=== PATIENT | female | born 1950 | race Caucasian/White ===

== ENCOUNTER 2020-12-21 17:40 | Inpatient (IN) | payer MEDICARE ==
[2020-12-21] MEDS ORDERED: Sodium Chloride 0.9% 10 ML Syringe FLUSH PRN (17:46)
[2020-12-21] MEDS ORDERED: Ketorolac 15 MG/ML SDV IVPUSH ONE (17:49)
[2020-12-21] MEDS ORDERED: methylPREDNISolone Sodium Succinate 125 MG/2 ML SDV IVPUSH ONE (17:49)
[2020-12-21] MEDS ORDERED: Sodium Chloride 0.9% 1,000 ML IV SCH (18:00)
[2020-12-21] MEDS ORDERED: cefTRIAXone 2 GM in Sodium Chloride 0.9% 100 ML IV ONE (18:17)
[2020-12-21] MEDS: cefTRIAXone 2 GM AdvVial IV ONE ×2 (18:25→18:32)
--- NOTE | 2020-12-21 19:25 | EDM.PDOC ---
ED HPI GENERAL MEDICAL PROBLEM - General Chief Complaint: Respiratory Problem Stated Complaint: [facility] Time Seen by Provider: 12/21/20 17:46 Source of Information: Reports: Patient, EMS, Family History Limitations: Reports: No Limitations - History of Present Illness INITIAL COMMENTS - FREE TEXT/NARRATIVE: The patient presents by [facility] for a fever, shortness of breath and confusion. She is traveling through. She was confused when she arrived. Her friend called and said over a week ago she was admitted in [place] for a blood infection. She was also admitted in [place] a few days ago for high altitude. She has mild COPD. She also has a seizure history. She is on some pain meds. She was doing good this morning but this afternoon she said she was hurting when she sat down and then she was anxious and confused and breathing hard. When EMS arrived her oxygen saturations were in the 80s. They put her on a nonrebreather. They also got a temp of 103.3. 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 The patient has redness to her legs. Onset: Gradual Duration: Day(s): Severity: Moderate Improves with: Reports: None Worsens with: Reports: None Associated Symptoms: Reports: Fever/Chills, Shortness of Breath. 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 IV with fluids - Related Data Allergies Allergy/AdvReac Type Severity Reaction Status Date / Time No Known Allergies Allergy Verified 12/21/20 17:47 Home Meds: Home Meds Aspirin [Aspirin EC] 81 mg PO DAILY 12/21/20 [History] Calcium Carbonate [Calcium] 500 mg PO QPM 12/21/20 [History] Cholecalciferol (Vitamin D3) [Vitamin D] 1,000 unit PO DAILY 12/21/20 [History] Cyanocobalamin (Vitamin B-12) [Vitamin B-12] 1,000 mcg PO DAILY 12/21/20 [History] Cyclobenzaprine [Flexeril] 10 mg PO BEDTIME 12/21/20 [History] Doxepin [SINEquan] 25 mg PO BEDTIME 12/21/20 [History] Levorphanol Tartrate 1 mg PO QPM 12/21/20 [History] [place] Carbonate 300 mg PO DAILY 12/21/20 [History] [place] Carbonate 600 mg PO QPM 12/21/20 [History] Magnesium 0 mg PO QPM 12/21/20 [History] Multivitamin 1 each PO DAILY 12/21/20 [History] Omeprazole Magnesium [Prilosec Otc] 80 mg PO DAILY 12/21/20 [History] Topiramate [Topamax] 200 mg PO QPM 12/21/20 [History] lamoTRIgine [LaMICtal] 150 mg PO BID 12/21/20 [History] oxyCODONE HCl [Oxycodone HCl] 15 mg PO TID PRN 12/21/20 [History] Past Medical History Respiratory History: Reports: COPD, SOB Gastrointestinal History: Reports: GERD Endocrine/Metabolic History: Reports: Obesity/BMI 30+ Social & Family History - Tobacco Use Tobacco Use Status *Q: Unknown Ever Used Tobacco - Caffeine Use Caffeine Use Comment: Unknown due to pt condition. ED ROS GENERAL - Review of Systems Review Of Systems: See Below Constitutional: Reports: Fever, Chills HEENT: Reports: No Symptoms Respiratory: Reports: Shortness of Breath. Denies: Cough Cardiovascular: Reports: No Symptoms Endocrine: Reports: No Symptoms GI/Abdominal: Reports: No Symptoms : Reports: No Symptoms Musculoskeletal: Reports: No Symptoms Skin: Reports: No Symptoms ED EXAM, GENERAL - Physical Exam Exam: See Below Exam Limited By: Altered Mental Status General Appearance: No Apparent Distress, Other (Sleepy but she will wake up and answer questions) Ears: Normal External Exam Nose: Normal Inspection Head: Atraumatic, Normocephalic Neck: Normal Inspection Respiratory/Chest: No Respiratory Distress, Decreased Breath Sounds Cardiovascular: Regular Rate, Rhythm, No Murmur, Other (Edema to both legs) GI/Abdominal: Soft, Non-Tender, No Organomegaly, No Mass Extremities: Other (erythema and edema to both legs) Neurological: Other (sleepy but she will wake up and answer some questions) Course - Vital Signs Last Recorded V/S: Last Vital Signs Temp 100.6 F 12/21/20 17:47 Pulse 81 12/21/20 18:20 Resp 20 12/21/20 17:47 BP 103/64 12/21/20 18:20 Pulse Ox 98 12/21/20 18:20 - Orders/Labs/Meds Orders: Active Orders 24 hr Category Date Time Status Blood Glucose Check, Bedside [RC] ONETIME Care 12/21/20 17:53 Active Cardiac Monitoring [RC] . DIRECTED Care 12/21/20 17:46 Active EKG Documentation Completion [RC] STAT Care 12/21/20 17:47 Active Oxygen Therapy [RC] PRN Care 12/21/20 17:46 Active Peripheral IV Care [RC] . DIRECTED Care 12/21/20 17:47 Active Chest 1V Frontal [CR] Stat Exams 12/21/20 17:47 Taken Head wo Cont [CT] Stat Exams 12/21/20 19:39 Ordered AMMONIA VENOUS [CHEM] Stat Lab 12/21/20 19:40 Ordered CULTURE BLOOD [BC] Stat Lab 12/21/20 18:03 Received CULTURE BLOOD [BC] Stat Lab 12/21/20 18:13 Received LITHIUM [REF] Stat Lab 12/21/20 18:34 Ordered Sodium Chloride 0.9% [Normal Saline] 1,000 ml Med 12/21/20 18:00 Active IV .BOLUS Sodium Chloride 0.9% [Saline Flush] Med 12/21/20 17:46 Active 10 ml FLUSH ASDIRECTED PRN Vancomycin 2 gm Med 12/21/20 19:39 Ordered Sodium Chloride 0.9% [Normal Saline] 500 ml IV ONETIME Blood Culture x2 Reflex Set [OM.PC] Stat Oth 12/21/20 17:47 Ordered Peripheral IV Insertion Adult [OM.PC] Stat Oth 12/21/20 17:46 Ordered Medication Orders Sodium Chloride (Normal Saline) 1,000 mls @ 1,000 mls/hr IV .BOLUS EMMANUEL Last Admin: 12/21/20 18:05 Dose: 1,000 mls/hr Documented by: ANTONIA Sodium Chloride (Sodium Chloride 0.9% 10 Ml Syringe) 10 ml FLUSH ASDIRECTED PRN PRN Reason: Keep Vein Open Last Admin: 12/21/20 18:05 Dose: 10 ml Documented by: ANTONIA Labs: Laboratory Tests 12/21/20 12/21/20 12/21/20 Range/Units 17:46 17:46 17:46 WBC 21.88 H (3.98-10.04) K/mm3 RBC 4.00 (3.98-5.22) M/mm3 Hgb 10.2 L (11.2-15.7) gm/dl Hct 35.0 (34.1-44.9) % MCV 87.5 (79.4-94.8) fl MCH 25.5 L (25.6-32.2) pg MCHC 29.1 L (32.2-35.5) g/dl RDW Std Deviation 67.8 H (36.4-46.3) fL Plt Count 410 H (182-369) K/mm3 MPV 11.2 (9.4-12.3) fl Neut % (Auto) 80.7 H (34.0-71.1) % Lymph % (Auto) 8.7 L (19.3-51.7) % [place] % (Auto) 7.8 (4.7-12.5) % Eos % (Auto) 1.6 (0.7-5.8) Baso % (Auto) 0.2 (0.1-1.2) % Neut # (Auto) 17.64 H (1.56-6.13) K/mm3 Lymph # (Auto) 1.91 (1.18-3.74) K/mm3 [place] # (Auto) 1.70 H (0.24-0.36) K/mm3 Eos # (Auto) 0.36 (0.04-0.36) K/mm3 Baso # (Auto) 0.05 (0.01-0.08) K/mm3 Manual Slide Review Abnormal smear PT 10.3 (9.7-12.0) SECONDS INR 0.96 APTT 22.8 (21.7-31.4) SECONDS Puncture Site ABG pH (7.35-7.45) ABG pCO2 (35.0-45.0) mmHg ABG pO2 (80.0-100.0) mmHg ABG HCO3 (22.0-26.0) meq/L ABG O2 Saturation (96.0-97.0) % ABG Base Excess (-2-2.0) A-a Gradient mmHg O2 Delivery Device Oxygen Flow Rate FiO2 (21.00-100.00) % Sodium 138 (136-145) mEq/L Potassium 4.9 (3.5-5.1) mEq/L Chloride 106 (98-107) mEq/L Carbon Dioxide 24 (21-32) mEq/L Anion Gap 12.9 (5-15) BUN 24 H (7-18) mg/dL Creatinine 1.8 H (0.55-1.02) mg/dL Est Cr Clr Drug Dosing 24.75 mL/min Estimated GFR (MDRD) 28 (>60) mL/min BUN/Creatinine Ratio 13.3 L (14-18) Glucose 117 H (70-99) mg/dL POC Glucose (70-99) mg/dL Lactic Acid (0.4-2.0) mmol/L Calcium 9.4 (8.5-10.1) mg/dL Magnesium 2.6 H (1.8-2.4) mg/dL Total Bilirubin 0.3 (0.2-1.0) mg/dL AST 21 (15-37) U/L ALT 37 (14-59) U/L Alkaline Phosphatase 132 H (46-116) U/L Troponin I < 0.017 (0.00-0.056) ng/mL C-Reactive Protein 1.6 H* (<1.0) mg/dL NT-Pro-B Natriuret Pep (0-125) pg/mL Total Protein 6.9 (6.4-8.2) g/dl Albumin 2.9 L (3.4-5.0) g/dl Globulin 4.0 gm/dL Albumin/Globulin Ratio 0.7 L (1-2) Urine Color (Yellow) Urine Appearance (Clear) Urine pH (5.0-8.0) Ur Specific [place] (1.005-1.030) Urine Protein (Negative) Urine Glucose (UA) (Negative) Urine Ketones (Negative) Urine Occult Blood (Negative) Urine Nitrite (Negative) Urine Bilirubin (Negative) Urine Urobilinogen (0.2-1.0) Ur Leukocyte Esterase (Negative) U Hyaline Cast (Auto) (0-5) /lpf Urine RBC (0-5) /hpf Urine WBC (0-5) /hpf Ur Squamous Epith Cells (0-5) /hpf Urine Bacteria (FEW) /hpf Urine Mucus (FEW) /hpf SARS-CoV-2 RNA (SORAYA) (NEGATIVE) 12/21/20 12/21/20 12/21/20 Range/Units 17:46 17:46 17:48 WBC (3.98-10.04) K/mm3 RBC (3.98-5.22) M/mm3 Hgb (11.2-15.7) gm/dl Hct (34.1-44.9) % MCV (79.4-94.8) fl MCH (25.6-32.2) pg MCHC (32.2-35.5) g/dl RDW Std Deviation (36.4-46.3) fL Plt Count (182-369) K/mm3 MPV (9.4-12.3) fl Neut % (Auto) (34.0-71.1) % Lymph % (Auto) (19.3-51.7) % [place] % (Auto) (4.7-12.5) % Eos % (Auto) (0.7-5.8) Baso % (Auto) (0.1-1.2) % Neut # (Auto) (1.56-6.13) K/mm3 Lymph # (Auto) (1.18-3.74) K/mm3 [place] # (Auto) (0.24-0.36) K/mm3 Eos # (Auto) (0.04-0.36) K/mm3 Baso # (Auto) (0.01-0.08) K/mm3 Manual Slide Review PT (9.7-12.0) SECONDS INR APTT (21.7-31.4) SECONDS Puncture Site ABG pH (7.35-7.45) ABG pCO2 (35.0-45.0) mmHg ABG pO2 (80.0-100.0) mmHg ABG HCO3 (22.0-26.0) meq/L ABG O2 Saturation (96.0-97.0) % ABG Base Excess (-2-2.0) A-a Gradient mmHg O2 Delivery Device Oxygen Flow Rate FiO2 (21.00-100.00) % Sodium (136-145) mEq/L Potassium (3.5-5.1) mEq/L Chloride (98-107) mEq/L Carbon Dioxide (21-32) mEq/L Anion Gap (5-15) BUN (7-18) mg/dL Creatinine (0.55-1.02) mg/dL Est Cr Clr Drug Dosing mL/min Estimated GFR (MDRD) (>60) mL/min BUN/Creatinine Ratio (14-18) Glucose (70-99) mg/dL POC Glucose 107 H (70-99) mg/dL Lactic Acid 0.8 (0.4-2.0) mmol/L Calcium (8.5-10.1) mg/dL Magnesium (1.8-2.4) mg/dL Total Bilirubin (0.2-1.0) mg/dL AST (15-37) U/L ALT (14-59) U/L Alkaline Phosphatase (46-116) U/L Troponin I (0.00-0.056) ng/mL C-Reactive Protein (<1.0) mg/dL NT-Pro-B Natriuret Pep 77 (0-125) pg/mL Total Protein (6.4-8.2) g/dl Albumin (3.4-5.0) g/dl Globulin gm/dL Albumin/Globulin Ratio (1-2) Urine Color (Yellow) Urine Appearance (Clear) Urine pH (5.0-8.0) Ur Specific [place] (1.005-1.030) Urine Protein (Negative) Urine Glucose (UA) (Negative) Urine Ketones (Negative) Urine Occult Blood (Negative) Urine Nitrite (Negative) Urine Bilirubin (Negative) Urine Urobilinogen (0.2-1.0) Ur Leukocyte Esterase (Negative) U Hyaline Cast (Auto) (0-5) /lpf Urine RBC (0-5) /hpf Urine WBC (0-5) /hpf Ur Squamous Epith Cells (0-5) /hpf Urine Bacteria (FEW) /hpf Urine Mucus (FEW) /hpf SARS-CoV-2 RNA (SORAYA) (NEGATIVE) 12/21/20 12/21/20 12/21/20 Range/Units 17:54 17:55 18:00 WBC (3.98-10.04) K/mm3 RBC (3.98-5.22) M/mm3 Hgb (11.2-15.7) gm/dl Hct (34.1-44.9) % MCV (79.4-94.8) fl MCH (25.6-32.2) pg MCHC (32.2-35.5) g/dl RDW Std Deviation (36.4-46.3) fL Plt Count (182-369) K/mm3 MPV (9.4-12.3) fl Neut % (Auto) (34.0-71.1) % Lymph % (Auto) (19.3-51.7) % [place] % (Auto) (4.7-12.5) % Eos % (Auto) (0.7-5.8) Baso % (Auto) (0.1-1.2) % Neut # (Auto) (1.56-6.13) K/mm3 Lymph # (Auto) (1.18-3.74) K/mm3 [place] # (Auto) (0.24-0.36) K/mm3 Eos # (Auto) (0.04-0.36) K/mm3 Baso # (Auto) (0.01-0.08) K/mm3 Manual Slide Review PT (9.7-12.0) SECONDS INR APTT (21.7-31.4) SECONDS Puncture Site Rt radial ABG pH 7.35 (7.35-7.45) ABG pCO2 43.0 (35.0-45.0) mmHg ABG pO2 93.0 (80.0-100.0) mmHg ABG HCO3 23.2 (22.0-26.0) meq/L ABG O2 Saturation 97.0 (96.0-97.0) % ABG Base Excess -1.7 (-2-2.0) A-a Gradient 281 mmHg O2 Delivery Device Nonrebreather Oxygen Flow Rate 10.0 FiO2 60.00 (21.00-100.00) % Sodium (136-145) mEq/L Potassium (3.5-5.1) mEq/L Chloride (98-107) mEq/L Carbon Dioxide (21-32) mEq/L Anion Gap (5-15) BUN (7-18) mg/dL Creatinine (0.55-1.02) mg/dL Est Cr Clr Drug Dosing mL/min Estimated GFR (MDRD) (>60) mL/min BUN/Creatinine Ratio (14-18) Glucose (70-99) mg/dL POC Glucose (70-99) mg/dL Lactic Acid (0.4-2.0) mmol/L Calcium (8.5-10.1) mg/dL Magnesium (1.8-2.4) mg/dL Total Bilirubin (0.2-1.0) mg/dL AST (15-37) U/L ALT (14-59) U/L Alkaline Phosphatase (46-116) U/L Troponin I (0.00-0.056) ng/mL C-Reactive Protein (<1.0) mg/dL NT-Pro-B Natriuret Pep (0-125) pg/mL Total Protein (6.4-8.2) g/dl Albumin (3.4-5.0) g/dl Globulin gm/dL Albumin/Globulin Ratio (1-2) Urine Color Yellow (Yellow) Urine Appearance Clear (Clear) Urine pH 6.0 (5.0-8.0) Ur Specific [place] 1.010 (1.005-1.030) Urine Protein Negative (Negative) Urine Glucose (UA) Negative (Negative) Urine Ketones Negative (Negative) Urine Occult Blood 1+ H (Negative) Urine Nitrite Negative (Negative) Urine Bilirubin Negative (Negative) Urine Urobilinogen 0.2 (0.2-1.0) Ur Leukocyte Esterase Negative (Negative) U Hyaline Cast (Auto) 5-10 H (0-5) /lpf Urine RBC 0-5 (0-5) /hpf Urine WBC Not seen (0-5) /hpf Ur Squamous Epith Cells 0-5 (0-5) /hpf Urine Bacteria Rare (FEW) /hpf Urine Mucus Rare (FEW) /hpf SARS-CoV-2 RNA (SORAYA) Negative (NEGATIVE) Meds: Medications Generic Name Dose Route Start Last Admin Trade Name Freq PRN Reason Stop Dose Admin Sodium Chloride 1,000 mls @ 1,000 mls/hr 12/21/20 18:00 12/21/20 18:05 Normal Saline IV 1,000 mls/hr .BOLUS EMMANUEL Administration Sodium Chloride 10 ml 12/21/20 17:46 12/21/20 18:05 Sodium Chloride 0.9% 10 Ml Syringe FLUSH 10 ml ASDIRECTED PRN Administration Keep Vein Open Discontinued Medications Generic Name Dose Route Start Last Admin Trade Name Freq PRN Reason Stop Dose Admin Ceftriaxone Sodium Confirm 12/21/20 18:21 12/21/20 18:32 Ceftriaxone 2 Gm Advvial Administered 12/21/20 18:22 Not Given Dose 2 gm IV .STK-MED ONE Ceftriaxone Sodium 2 gm/ 100 mls @ 200 mls/hr 12/21/20 18:17 12/21/20 18:29 Sodium Chloride IV 12/21/20 18:46 200 mls/hr ONETIME ONE Administration Ketorolac Tromethamine 15 mg 12/21/20 17:49 12/21/20 18:04 Ketorolac 15 Mg/Ml Sdv IVPUSH 12/21/20 17:50 15 mg ONETIME ONE Administration Methylprednisolone Sodium Succinate 125 mg 12/21/20 17:49 12/21/20 18:04 Methylprednisolone Sodium Succinate 125 Mg/2 Ml Sdv IVPUSH 12/21/20 17:50 125 mg ONETIME ONE Administration - Re-Assessments/Exams Free Text/Narrative Re-Assessment/Exam: 12/21/20 19:30 I ordered an IV NS, oxygen, toradol 30mg IV, labs, blood cultures, CXR, solu- medrol 125mg IV, and rocephin 2 grams IV. I suspect she is septic. Her WBC was elevated at 21.88. Her Hgb is low at 10.2. Her platelets are elevated at 410. Her PT and PTT look good. Her ABG is normal. Her creatinine is elevated at 1.8. Her troponin is negative. Her CRP is elevated at 1.6. Her lactic acid is normal at 0.8. Her COVID 19 is negative. Her CXR looks good. I feel the source is her legs and she is septic from that but not severe sepsis. 12/21/20 19:40 I talked with our hospitalist Dr Sharpe and he agreed to the admission. He wanted me to add vancomycin, CT of her head and an ammonia level. I called the patient's friend to update her. Departure - Departure Time of Disposition: 19:45 Disposition: Admitted As Inpatient 65 Condition: Poor Clinical Impression: Renal insufficiency Sepsis Qualifiers: Sepsis type: sepsis due to unspecified organism Sepsis acute organ dysfunction status: unspecified Qualified Code(s): A41.9 - Sepsis, unspecified organism Cellulitis Qualifiers: Site of cellulitis: extremity Site of cellulitis of extremity: lower extremity Laterality: unspecified laterality Qualified Code(s): L03.119 - Cellulitis of unspecified part of limb - Discharge Information Referrals: PCP,Not In Area [Primary Care Provider] - Forms: ED Department Discharge Sepsis Event Note (ED) - Evaluation Sepsis Screening Result: Possible Severe Sepsis Risk - Focused Exam Vital Signs: Vital Signs Temp Pulse Resp BP Pulse Ox Pulse Ox 12/21/20 18:20 81 103/64 98 98 12/21/20 18:15 99 12/21/20 17:47 100.6 F 95 20 123/65 98 - My Orders Last 24 Hours: My Active Orders 12/21/20 17:46 Cardiac Monitoring [RC] . DIRECTED Oxygen Therapy [RC] PRN Sodium Chloride 0.9% [Saline Flush] 10 ml FLUSH ASDIRECTED PRN Peripheral IV Insertion Adult [OM.PC] Stat 12/21/20 17:47 EKG Documentation Completion [RC] STAT Peripheral IV Care [RC] . DIRECTED Chest 1V Frontal [CR] Stat Blood Culture x2 Reflex Set [OM.PC] Stat 12/21/20 17:53 Blood Glucose Check, Bedside [RC] ONETIME 12/21/20 18:00 Sodium Chloride 0.9% [Normal Saline] 1,000 ml IV .BOLUS 12/21/20 18:03 CULTURE BLOOD [BC] Stat 12/21/20 18:13 CULTURE BLOOD [BC] Stat 12/21/20 18:34 LITHIUM [REF] Stat 12/21/20 19:39 Head wo Cont [CT] Stat Vancomycin 2 gm Sodium Chloride 0.9% [Normal Saline] 500 ml IV ONETIME 12/21/20 19:40 AMMONIA VENOUS [CHEM] Stat - Assessment/Plan Last 24 Hours: My Active Orders 12/21/20 17:46 Cardiac Monitoring [RC] . DIRECTED Oxygen Therapy [RC] PRN Sodium Chloride 0.9% [Saline Flush] 10 ml FLUSH ASDIRECTED PRN Peripheral IV Insertion Adult [OM.PC] Stat 12/21/20 17:47 EKG Documentation Completion [RC] STAT Peripheral IV Care [RC] . DIRECTED Chest 1V Frontal [CR] Stat Blood Culture x2 Reflex Set [OM.PC] Stat 12/21/20 17:53 Blood Glucose Check, Bedside [RC] ONETIME 12/21/20 18:00 Sodium Chloride 0.9% [Normal Saline] 1,000 ml IV .BOLUS 12/21/20 18:03 CULTURE BLOOD [BC] Stat 12/21/20 18:13 CULTURE BLOOD [BC] Stat 12/21/20 18:34 LITHIUM [REF] Stat 12/21/20 19:39 Head wo Cont [CT] Stat Vancomycin 2 gm Sodium Chloride 0.9% [Normal Saline] 500 ml IV ONETIME 12/21/20 19:40 AMMONIA VENOUS [CHEM] Stat
[2020-12-21] MEDS ORDERED: Vancomycin 2 GM in Sodium Chloride 0.9% 500 ML IV ONE (19:39)
[2020-12-21] MEDS ORDERED: Acetaminophen 325 MG Tab PO PRN (23:50)
[2020-12-21] MEDS ORDERED: Ondansetron 4 MG/2 ML SDV IVPUSH PRN (23:51)
[2020-12-21] MEDS: Sodium Chloride 0.9% 1,000 ML IV SCH (23:54)
[2020-12-22] MEDS: Sodium Chloride 0.9% 1,000 ML IV SCH ×2 (02:20→08:49)
--- NOTE | 2020-12-22 07:07 | PCM.HP.2 ---
H&P History of Present Illness - General Date of Service: 12/22/20 Admit Problem/Dx: Admission Diagnosis/Problem Admission Diagnosis/Problem Sepsis Left lower extremity cellulitis Source of Information: Patient, Significant Other History Limitations: Reports: Other - History of Present Illness Initial Comments - Free Text/Narative: This is a 70F with PMhx of TBI, Bipolar disorder, GERD, undifferentiated tremors, suspected cognitive impairment presenting for worsening lower extremity edema of left leg. Hx limited by patient memory/cognitive issues. She lives in [facility] but over the last month has been taking cross country ride via recreational RV with chair lift. She and her friend made it to [place] but then the patient was hospitalized for about a week. Details of hospitalization unclear, there was concern for possible bacteremia; and it sounds like the patient was discharged with antibiotics for cellulitis of left leg. She presented to ED was febrile, had elevated WBC. She was given solumedrol initially and vancomycin +ceftriaxone and admitted for further evaluation. She currently denies headache, chest pain, sob , nausea, vomiting, diarrhea, abdominal pain. - Related Data Allergies/Adverse Reactions: Allergies Allergy/AdvReac Type Severity Reaction Status Date / Time No Known Allergies Allergy Verified 12/21/20 17:47 Home Medications: Home Meds Aspirin [Aspirin EC] 81 mg PO DAILY 12/21/20 [History] Calcium Carbonate [Calcium] 500 mg PO QPM 12/21/20 [History] Cholecalciferol (Vitamin D3) [Vitamin D] 1,000 unit PO DAILY 12/21/20 [History] Cyanocobalamin (Vitamin B-12) [Vitamin B-12] 1,000 mcg PO DAILY 12/21/20 [History] Cyclobenzaprine [Flexeril] 10 mg PO BEDTIME 12/21/20 [History] Doxepin [SINEquan] 25 mg PO BEDTIME 12/21/20 [History] Levorphanol Tartrate 1 mg PO QPM 12/21/20 [History] [place] Carbonate 300 mg PO DAILY 12/21/20 [History] [place] Carbonate 600 mg PO QPM 12/21/20 [History] Magnesium 0 mg PO QPM 12/21/20 [History] Multivitamin 1 each PO DAILY 12/21/20 [History] Omeprazole Magnesium [Prilosec Otc] 80 mg PO DAILY 12/21/20 [History] Topiramate [Topamax] 200 mg PO QPM 12/21/20 [History] lamoTRIgine [LaMICtal] 150 mg PO BID 12/21/20 [History] oxyCODONE HCl [Oxycodone HCl] 15 mg PO TID PRN 12/21/20 [History] Past Medical History Respiratory History: Reports: COPD, SOB Gastrointestinal History: Reports: GERD 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 (See 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) Other OB/BYN History: hysterctomy Musculoskeletal History: Reports: Back Pain, Chronic Neurological History: Reports: Brain Injury Endocrine/Metabolic History: Reports: Obesity/BMI 30+ Oncologic (Cancer) History: Reports: Uterine - Past Surgical History Neurological Surgical History: Reports: Other (See Below) Other Neurological Surgeries/Procedures: brain surgury Social & Family History - Family History Family Medical History: No Pertinent Family History - Tobacco Use Tobacco Use Status *Q: Former Tobacco User Years of Tobacco use: 25 Used Tobacco, but Quit: Yes Month/Year Tobacco Last Used: 1994 - Caffeine Use Caffeine Use: Reports: Coffee Caffeine Use Comment: Unknown due to pt condition. - Recreational Drug Use Recreational Drug Use: No H&P Review of Systems - Review of Systems: Review Of Systems: Comprehensive ROS is negative, except as noted in HPI. Exam - Exam Exam: See Below - Vital Signs Vital Signs: Last Vital Signs Temp 97.5 F 12/22/20 06:39 Pulse 96 12/22/20 06:39 Resp 19 12/22/20 06:39 BP 118/77 12/22/20 06:39 Pulse Ox 99 12/22/20 06:39 Weight: 241 lb 11.2 oz - Exam Physical Exam Comments:: Gen: elderly female in no distress HEENT: NCAT EOMI MMM Neck: Supple CV RRR normal s1 s2] Lungs; CTAB Abd: soft, nt, nd Neuro: Alert to place but not time; baseline cognitive impairment from hx of TBI, moving extremities; appears at baseline state MSK: Age appropriate muscle mass Skin: erythema, edema of left lower extremity to mid shrestha Psych: appropriate affect. - Patient Data Lab Results Last 24 hrs: Laboratory Results - last 24 hr 12/21/20 12/21/20 12/21/20 Range/Units 08:10 17:46 17:46 WBC 21.88 H (3.98-10.04) K/mm3 RBC 4.00 (3.98-5.22) M/mm3 Hgb 10.2 L (11.2-15.7) gm/dl Hct 35.0 (34.1-44.9) % MCV 87.5 (79.4-94.8) fl MCH 25.5 L (25.6-32.2) pg MCHC 29.1 L (32.2-35.5) g/dl RDW Std Deviation 67.8 H (36.4-46.3) fL Plt Count 410 H (182-369) K/mm3 MPV 11.2 (9.4-12.3) fl Neut % (Auto) 80.7 H (34.0-71.1) % Lymph % (Auto) 8.7 L (19.3-51.7) % [place] % (Auto) 7.8 (4.7-12.5) % Eos % (Auto) 1.6 (0.7-5.8) Baso % (Auto) 0.2 (0.1-1.2) % Neut # (Auto) 17.64 H (1.56-6.13) K/mm3 Lymph # (Auto) 1.91 (1.18-3.74) K/mm3 [place] # (Auto) 1.70 H (0.24-0.36) K/mm3 Eos # (Auto) 0.36 (0.04-0.36) K/mm3 Baso # (Auto) 0.05 (0.01-0.08) K/mm3 Manual Slide Review Abnormal smear PT 10.3 (9.7-12.0) SECONDS INR 0.96 APTT 22.8 (21.7-31.4) SECONDS Puncture Site ABG pH (7.35-7.45) ABG pCO2 (35.0-45.0) mmHg ABG pO2 (80.0-100.0) mmHg ABG HCO3 (22.0-26.0) meq/L ABG O2 Saturation (96.0-97.0) % ABG Base Excess (-2-2.0) A-a Gradient mmHg O2 Delivery Device Oxygen Flow Rate FiO2 (21.00-100.00) % Sodium (136-145) mEq/L Potassium (3.5-5.1) mEq/L Chloride (98-107) mEq/L Carbon Dioxide (21-32) mEq/L Anion Gap (5-15) BUN (7-18) mg/dL Creatinine (0.55-1.02) mg/dL Est Cr Clr Drug Dosing mL/min Estimated GFR (MDRD) (>60) mL/min BUN/Creatinine Ratio (14-18) Glucose (70-99) mg/dL POC Glucose (70-99) mg/dL Lactic Acid (0.4-2.0) mmol/L Calcium (8.5-10.1) mg/dL Magnesium (1.8-2.4) mg/dL Total Bilirubin (0.2-1.0) mg/dL AST (15-37) U/L ALT (14-59) U/L Alkaline Phosphatase (46-116) U/L Ammonia 13 (11-32) umol/L Troponin I (0.00-0.056) ng/mL C-Reactive Protein (<1.0) mg/dL NT-Pro-B Natriuret Pep (0-125) pg/mL Total Protein (6.4-8.2) g/dl Albumin (3.4-5.0) g/dl Globulin gm/dL Albumin/Globulin Ratio (1-2) Urine Color (Yellow) Urine Appearance (Clear) Urine pH (5.0-8.0) Ur Specific [place] (1.005-1.030) Urine Protein (Negative) Urine Glucose (UA) (Negative) Urine Ketones (Negative) Urine Occult Blood (Negative) Urine Nitrite (Negative) Urine Bilirubin (Negative) Urine Urobilinogen (0.2-1.0) Ur Leukocyte Esterase (Negative) U Hyaline Cast (Auto) (0-5) /lpf Urine RBC (0-5) /hpf Urine WBC (0-5) /hpf Ur Squamous Epith Cells (0-5) /hpf Urine Bacteria (FEW) /hpf Urine Mucus (FEW) /hpf SARS-CoV-2 RNA (SORAYA) (NEGATIVE) 12/21/20 12/21/20 12/21/20 Range/Units 17:46 17:46 17:46 WBC (3.98-10.04) K/mm3 RBC (3.98-5.22) M/mm3 Hgb (11.2-15.7) gm/dl Hct (34.1-44.9) % MCV (79.4-94.8) fl MCH (25.6-32.2) pg MCHC (32.2-35.5) g/dl RDW Std Deviation (36.4-46.3) fL Plt Count (182-369) K/mm3 MPV (9.4-12.3) fl Neut % (Auto) (34.0-71.1) % Lymph % (Auto) (19.3-51.7) % [place] % (Auto) (4.7-12.5) % Eos % (Auto) (0.7-5.8) Baso % (Auto) (0.1-1.2) % Neut # (Auto) (1.56-6.13) K/mm3 Lymph # (Auto) (1.18-3.74) K/mm3 [place] # (Auto) (0.24-0.36) K/mm3 Eos # (Auto) (0.04-0.36) K/mm3 Baso # (Auto) (0.01-0.08) K/mm3 Manual Slide Review PT (9.7-12.0) SECONDS INR APTT (21.7-31.4) SECONDS Puncture Site ABG pH (7.35-7.45) ABG pCO2 (35.0-45.0) mmHg ABG pO2 (80.0-100.0) mmHg ABG HCO3 (22.0-26.0) meq/L ABG O2 Saturation (96.0-97.0) % ABG Base Excess (-2-2.0) A-a Gradient mmHg O2 Delivery Device Oxygen Flow Rate FiO2 (21.00-100.00) % Sodium 138 (136-145) mEq/L Potassium 4.9 (3.5-5.1) mEq/L Chloride 106 (98-107) mEq/L Carbon Dioxide 24 (21-32) mEq/L Anion Gap 12.9 (5-15) BUN 24 H (7-18) mg/dL Creatinine 1.8 H (0.55-1.02) mg/dL Est Cr Clr Drug Dosing 24.75 mL/min Estimated GFR (MDRD) 28 (>60) mL/min BUN/Creatinine Ratio 13.3 L (14-18) Glucose 117 H (70-99) mg/dL POC Glucose (70-99) mg/dL Lactic Acid 0.8 (0.4-2.0) mmol/L Calcium 9.4 (8.5-10.1) mg/dL Magnesium 2.6 H (1.8-2.4) mg/dL Total Bilirubin 0.3 (0.2-1.0) mg/dL AST 21 (15-37) U/L ALT 37 (14-59) U/L Alkaline Phosphatase 132 H (46-116) U/L Ammonia (11-32) umol/L Troponin I < 0.017 (0.00-0.056) ng/mL C-Reactive Protein 1.6 H* (<1.0) mg/dL NT-Pro-B Natriuret Pep 77 (0-125) pg/mL Total Protein 6.9 (6.4-8.2) g/dl Albumin 2.9 L (3.4-5.0) g/dl Globulin 4.0 gm/dL Albumin/Globulin Ratio 0.7 L (1-2) Urine Color (Yellow) Urine Appearance (Clear) Urine pH (5.0-8.0) Ur Specific [place] (1.005-1.030) Urine Protein (Negative) Urine Glucose (UA) (Negative) Urine Ketones (Negative) Urine Occult Blood (Negative) Urine Nitrite (Negative) Urine Bilirubin (Negative) Urine Urobilinogen (0.2-1.0) Ur Leukocyte Esterase (Negative) U Hyaline Cast (Auto) (0-5) /lpf Urine RBC (0-5) /hpf Urine WBC (0-5) /hpf Ur Squamous Epith Cells (0-5) /hpf Urine Bacteria (FEW) /hpf Urine Mucus (FEW) /hpf SARS-CoV-2 RNA (SORAYA) (NEGATIVE) 12/21/20 12/21/20 12/21/20 Range/Units 17:48 17:54 17:55 WBC (3.98-10.04) K/mm3 RBC (3.98-5.22) M/mm3 Hgb (11.2-15.7) gm/dl Hct (34.1-44.9) % MCV (79.4-94.8) fl MCH (25.6-32.2) pg MCHC (32.2-35.5) g/dl RDW Std Deviation (36.4-46.3) fL Plt Count (182-369) K/mm3 MPV (9.4-12.3) fl Neut % (Auto) (34.0-71.1) % Lymph % (Auto) (19.3-51.7) % [place] % (Auto) (4.7-12.5) % Eos % (Auto) (0.7-5.8) Baso % (Auto) (0.1-1.2) % Neut # (Auto) (1.56-6.13) K/mm3 Lymph # (Auto) (1.18-3.74) K/mm3 [place] # (Auto) (0.24-0.36) K/mm3 Eos # (Auto) (0.04-0.36) K/mm3 Baso # (Auto) (0.01-0.08) K/mm3 Manual Slide Review PT (9.7-12.0) SECONDS INR APTT (21.7-31.4) SECONDS Puncture Site Rt radial ABG pH 7.35 (7.35-7.45) ABG pCO2 43.0 (35.0-45.0) mmHg ABG pO2 93.0 (80.0-100.0) mmHg ABG HCO3 23.2 (22.0-26.0) meq/L ABG O2 Saturation 97.0 (96.0-97.0) % ABG Base Excess -1.7 (-2-2.0) A-a Gradient 281 mmHg O2 Delivery Device Nonrebreather Oxygen Flow Rate 10.0 FiO2 60.00 (21.00-100.00) % Sodium (136-145) mEq/L Potassium (3.5-5.1) mEq/L Chloride (98-107) mEq/L Carbon Dioxide (21-32) mEq/L Anion Gap (5-15) BUN (7-18) mg/dL Creatinine (0.55-1.02) mg/dL Est Cr Clr Drug Dosing mL/min Estimated GFR (MDRD) (>60) mL/min BUN/Creatinine Ratio (14-18) Glucose (70-99) mg/dL POC Glucose 107 H (70-99) mg/dL Lactic Acid (0.4-2.0) mmol/L Calcium (8.5-10.1) mg/dL Magnesium (1.8-2.4) mg/dL Total Bilirubin (0.2-1.0) mg/dL AST (15-37) U/L ALT (14-59) U/L Alkaline Phosphatase (46-116) U/L Ammonia (11-32) umol/L Troponin I (0.00-0.056) ng/mL C-Reactive Protein (<1.0) mg/dL NT-Pro-B Natriuret Pep (0-125) pg/mL Total Protein (6.4-8.2) g/dl Albumin (3.4-5.0) g/dl Globulin gm/dL Albumin/Globulin Ratio (1-2) Urine Color (Yellow) Urine Appearance (Clear) Urine pH (5.0-8.0) Ur Specific [place] (1.005-1.030) Urine Protein (Negative) Urine Glucose (UA) (Negative) Urine Ketones (Negative) Urine Occult Blood (Negative) Urine Nitrite (Negative) Urine Bilirubin (Negative) Urine Urobilinogen (0.2-1.0) Ur Leukocyte Esterase (Negative) U Hyaline Cast (Auto) (0-5) /lpf Urine RBC (0-5) /hpf Urine WBC (0-5) /hpf Ur Squamous Epith Cells (0-5) /hpf Urine Bacteria (FEW) /hpf Urine Mucus (FEW) /hpf SARS-CoV-2 RNA (SORAYA) Negative (NEGATIVE) 12/21/20 12/21/20 Range/Units 18:00 22:40 WBC (3.98-10.04) K/mm3 RBC (3.98-5.22) M/mm3 Hgb (11.2-15.7) gm/dl Hct (34.1-44.9) % MCV (79.4-94.8) fl MCH (25.6-32.2) pg MCHC (32.2-35.5) g/dl RDW Std Deviation (36.4-46.3) fL Plt Count (182-369) K/mm3 MPV (9.4-12.3) fl Neut % (Auto) (34.0-71.1) % Lymph % (Auto) (19.3-51.7) % [place] % (Auto) (4.7-12.5) % Eos % (Auto) (0.7-5.8) Baso % (Auto) (0.1-1.2) % Neut # (Auto) (1.56-6.13) K/mm3 Lymph # (Auto) (1.18-3.74) K/mm3 [place] # (Auto) (0.24-0.36) K/mm3 Eos # (Auto) (0.04-0.36) K/mm3 Baso # (Auto) (0.01-0.08) K/mm3 Manual Slide Review PT (9.7-12.0) SECONDS INR APTT (21.7-31.4) SECONDS Puncture Site ABG pH (7.35-7.45) ABG pCO2 (35.0-45.0) mmHg ABG pO2 (80.0-100.0) mmHg ABG HCO3 (22.0-26.0) meq/L ABG O2 Saturation (96.0-97.0) % ABG Base Excess (-2-2.0) A-a Gradient mmHg O2 Delivery Device Oxygen Flow Rate FiO2 (21.00-100.00) % Sodium (136-145) mEq/L Potassium (3.5-5.1) mEq/L Chloride (98-107) mEq/L Carbon Dioxide (21-32) mEq/L Anion Gap (5-15) BUN (7-18) mg/dL Creatinine (0.55-1.02) mg/dL Est Cr Clr Drug Dosing mL/min Estimated GFR (MDRD) (>60) mL/min BUN/Creatinine Ratio (14-18) Glucose (70-99) mg/dL POC Glucose (70-99) mg/dL Lactic Acid 0.6 (0.4-2.0) mmol/L Calcium (8.5-10.1) mg/dL Magnesium (1.8-2.4) mg/dL Total Bilirubin (0.2-1.0) mg/dL AST (15-37) U/L ALT (14-59) U/L Alkaline Phosphatase (46-116) U/L Ammonia (11-32) umol/L Troponin I (0.00-0.056) ng/mL C-Reactive Protein (<1.0) mg/dL NT-Pro-B Natriuret Pep (0-125) pg/mL Total Protein (6.4-8.2) g/dl Albumin (3.4-5.0) g/dl Globulin gm/dL Albumin/Globulin Ratio (1-2) Urine Color Yellow (Yellow) Urine Appearance Clear (Clear) Urine pH 6.0 (5.0-8.0) Ur Specific [place] 1.010 (1.005-1.030) Urine Protein Negative (Negative) Urine Glucose (UA) Negative (Negative) Urine Ketones Negative (Negative) Urine Occult Blood 1+ H (Negative) Urine Nitrite Negative (Negative) Urine Bilirubin Negative (Negative) Urine Urobilinogen 0.2 (0.2-1.0) Ur Leukocyte Esterase Negative (Negative) U Hyaline Cast (Auto) 5-10 H (0-5) /lpf Urine RBC 0-5 (0-5) /hpf Urine WBC Not seen (0-5) /hpf Ur Squamous Epith Cells 0-5 (0-5) /hpf Urine Bacteria Rare (FEW) /hpf Urine Mucus Rare (FEW) /hpf SARS-CoV-2 RNA (SORAYA) (NEGATIVE) Result Diagrams: 12/22/20 08:45 12/22/20 08:45 Harry Results Last 24 hrs: Microbiology 12/21/20 18:03 Anaerobic Blood Culture - Final Blood - Venous Sepsis Event Note - Evaluation Sepsis Screening Result: No Definite Risk - Focused Exam Vital Signs: Vital Signs Temp Pulse Resp BP Pulse Ox Pulse Ox 12/22/20 06:39 97.5 F 96 19 118/77 99 12/22/20 05:33 99 12/22/20 03:47 98.7 F 99 15 104/51 L 98 12/22/20 00:40 97.0 F 66 30 H 95/57 L 99 12/21/20 23:45 94 L 12/21/20 23:42 96.8 F L 69 17 96 12/21/20 22:21 70 100/58 L 12/21/20 22:10 68 18 95/59 L 94 L 12/21/20 21:06 74 20 107/66 99 12/21/20 20:44 97.5 F 98 18 98/56 L 97 12/21/20 19:45 96.7 F L 73 16 89/60 L 98 *Q Meaningful Use (ADM) - VTE *Q VTE Criteria *Q: 2 Problem List Initiated/Reviewed/Updated: Yes Orders Last 24hrs: Active Orders 24 hr Category Date Time Status Admission Status [Patient Status] [ADT] Routine ADT 12/21/20 20:34 Active Bedrest Bathroom Privileges [RC] ASDIRECTED Care 12/21/20 23:45 Active Cardiac Monitoring [RC] . DIRECTED Care 12/21/20 17:46 Active Oxygen Therapy [RC] PRN Care 12/21/20 17:46 Active Regular Diet [DIET] Diet 12/22/20 Breakfast Active Chest 1V Frontal [CR] Stat Exams 12/21/20 17:47 Taken Head wo Cont [CT] Stat Exams 12/21/20 19:39 Taken CULTURE BLOOD [BC] Stat Lab 12/21/20 18:03 Results CULTURE BLOOD [BC] Stat Lab 12/21/20 18:13 Received LITHIUM [REF] Stat Lab 12/21/20 17:46 Received Acetaminophen [TylenoL] Med 12/21/20 23:50 Active 975 mg PO Q6H PRN Ondansetron [Zofran] Med 12/21/20 23:51 Active 4 mg IVPUSH Q6H PRN Sodium Chloride 0.9% [Normal Saline] 1,000 ml Med 12/21/20 23:45 Active IV ASDIRECTED Sodium Chloride 0.9% [Saline Flush] Med 12/21/20 17:46 Active 10 ml FLUSH ASDIRECTED PRN cefTRIAXone [Rocephin] 2 gm Med 12/22/20 18:00 Active Sodium Chloride 0.9% [Normal Saline] 100 ml IV Q24H Blood Culture x2 Reflex Set [OM.PC] Stat Oth 12/21/20 17:47 Ordered Peripheral IV Insertion Adult [OM.PC] Stat Oth 12/21/20 17:46 Ordered Code Status [Resuscitation Status] Routine Resus Stat 12/21/20 23:53 Ordered Medication Orders Acetaminophen (Acetaminophen 325 Mg Tab) 975 mg PO Q6H PRN PRN Reason: Pain/Fever Sodium Chloride (Normal Saline) 1,000 mls @ 125 mls/hr IV ASDIRECTED EMMANUEL Last Admin: 12/22/20 02:20 Dose: 125 mls/hr Documented by: Infusion: 12/22/20 02:20 Dose: 125 mls/hr Documented by: Admin: 12/21/20 23:54 Dose: 125 mls/hr Documented by: RUTH Ceftriaxone Sodium 2 gm/ (Sodium Chloride) 100 mls @ 200 mls/hr IV Q24H EMMANUEL Ondansetron HCl (Ondansetron 4 Mg/2 Ml Sdv) 4 mg IVPUSH Q6H PRN PRN Reason: Nausea/Vomiting Sodium Chloride (Sodium Chloride 0.9% 10 Ml Syringe) 10 ml FLUSH ASDIRECTED PRN PRN Reason: Keep Vein Open Last Admin: 12/21/20 18:05 Dose: 10 ml Documented by: ANTONIA Assessment/Plan Comment:: Assessment: This is a 70F with PMhx of TBI, Bipolar disorder, GERD, undifferentiated tremors, suspected cognitive impairment presenting for worsening lower extremity edema of left leg; fever, tachycardia and leukocytosis. Hx limited by patient memory/cognitive issues. She lives in [facility] but over the last month has been taking cross country ride via recreational RV with chair lift. She and her friend made it to [place] but then the patient was hospitalized for about a week. Details of hospitalization unclear, there was concern for possible bacteremia; and it sounds like the patient was discharged with antibiotics for cellulitis of left leg. She presented to ED was febrile, had elevated WBC. She was given solumedrol initially and vancomycin +ceftriaxone and admitted for further evaluation. 1. Sepsis secondary to left lower extremity edema; fever; tachycardia; leukocytosis 2. Hx of TBI with cognitive impairment 3. Hx of Bipolar disorder 4. Hx of tremors details unknown 5. Hx of GERD 6. Mild hypernatremia 7. MARISOL; likely pre-renal 8. Generalized weakness Plan -admit to inpatient -obtain blood culture -continue vanco+ceftriaxone -continue PPI -pain control -PT/OT/SW consults -obtain hospital records -switch IVF to /2 NS Code-Full DVT-heparin subq Dispo-may need short term rehab; anticipated LOS 2-3 days - Mortality Measure Prognosis:: Good
[2020-12-22] MEDS ORDERED: Albuterol/Ipratropium 3.0-0.5 MG/3 ML Neb Soln NEB PRN (08:26)
[2020-12-22] MEDS: Cholecalciferol (Vitamin D3) 25 MCG Tab PO SCH (08:44)
[2020-12-22] MEDS: lamoTRIgine 100 MG Tab PO SCH ×2 (08:44→20:03)
[2020-12-22] MEDS: Cyanocobalamin (Vitamin B12) 1,000 MCG Tab PO SCH (08:44)
[2020-12-22] MEDS: Heparin Sodium 5,000 Units/ML Vial SUBCUT SCH ×2 (08:45→16:07)
[2020-12-22] MEDS: Lithium Carbonate 300 MG Cap PO SCH ×2 (08:45→09:35)
[2020-12-22] MEDS: Aspirin 81 MG Tab.EC PO SCH (08:46)
[2020-12-22] MEDS: Pantoprazole 40 MG Tab.CR PO SCH (12:17)
--- NOTE | 2020-12-22 12:23 | CT ---
Head CT Technique: Multiple axial sections through the brain were obtained. Intravenous contrast was not utilized. Reconstructed coronal and sagittal images were obtained. Comparison: No prior intracranial imaging is available. Findings: Prior craniotomy is noted on the left side. Ventricles along with basal cisterns and sulci over the convexities are moderately prominent. Slightly more atrophy is seen within the frontal regions. Mild areas of diminished density are noted within the periventricular white matter which is most likely due to small vessel ischemic demyelination change. No other abnormal parenchymal densities are seen. No evidence of intracranial hemorrhage is seen. No midline shift or mass-effect is seen. Impression: 1. Senescent change as noted above. Prior left-sided craniotomy. 2. No acute intracranial abnormality is identified. Diagnostic code #2 I agree with preliminary report from [facility], finalized on 12/21/20, 10:32 PM CDT, code 1
--- NOTE | 2020-12-22 12:37 | CR ---
Chest: Portable view of the chest was obtained. Comparison: No prior chest imaging is available. Scoliosis is noted within the spine. Spinal fixation rods are seen within the lower thoracic and lumbar spine. Lungs are clear with no acute parenchymal change. Heart size and mediastinum are within normal limits for portable technique. Impression: 1. Bony findings believed to be chronic as noted above. 2. Nothing acute is appreciated on portable chest x-ray. Diagnostic code #2 I agree with preliminary report from [facility], finalized on 12/22/20, 10:26 AM CDT, code 1
[2020-12-22] MEDS: Sodium Chloride 0.45% 1,000 ML IV SCH (15:02)
[2020-12-22] MEDS ORDERED: Vancomycin 1 GM SDV ONE (17:42)
[2020-12-22] MEDS ORDERED: Topiramate 100 MG Tab PO SCH (18:00)
[2020-12-22] MEDS ORDERED: Lithium Carbonate 300 MG Cap PO SCH ×2 (18:00)
[2020-12-22] MEDS: Vancomycin 1.75 GM in Sodium Chloride 0.9% 500 ML IV SCH (18:17)
[2020-12-22] MEDS: Topiramate 100 MG Tab PO SCH (20:04)
[2020-12-22] MEDS: Cyclobenzaprine 10 MG Tab PO SCH (20:04)
[2020-12-22] MEDS: Doxepin 10 MG Cap PO SCH (20:05)
[2020-12-22] MEDS: aMILoride 5 MG Tab PO SCH (20:06)
[2020-12-22] MEDS: cefTRIAXone 2 GM in Sodium Chloride 0.9% 100 ML IV SCH (20:06)
[2020-12-22] MEDS ORDERED: Doxepin 25 MG Cap PO SCH (21:00)
[2020-12-23] MEDS: Heparin Sodium 5,000 Units/ML Vial SUBCUT SCH ×3 (00:56→17:20)
[2020-12-23] MEDS: oxyCODONE 5 MG Tab PO PRN ×3 (01:46→22:28)
[2020-12-23] MEDS: Sodium Chloride 0.45% 1,000 ML IV SCH (07:23)
[2020-12-23] MEDS: lamoTRIgine 100 MG Tab PO SCH ×2 (08:06→20:17)
[2020-12-23] MEDS: Pantoprazole 40 MG Tab.CR PO SCH (08:06)
[2020-12-23] MEDS: Cyanocobalamin (Vitamin B12) 1,000 MCG Tab PO SCH (08:07)
[2020-12-23] MEDS: Cholecalciferol (Vitamin D3) 25 MCG Tab PO SCH (08:07)
[2020-12-23] MEDS: Aspirin 81 MG Tab.EC PO SCH (08:08)
[2020-12-23] MEDS: HYDROmorphone 0.5 MG/0.5 ML Syringe IVPUSH PRN ×2 (08:16→22:55)
[2020-12-23] MEDS: aMILoride 5 MG Tab PO SCH ×2 (08:20→20:18)
[2020-12-23] MEDS ORDERED: Lithium Carbonate 300 MG Cap PO SCH (09:00)
[2020-12-23] MEDS ORDERED: Sodium Chloride 0.45% 1,000 ML IV SCH (09:45)
[2020-12-23 10:10] LABS: HEMOGLOBIN A1C 4.8 %
[2020-12-23] MEDS ORDERED: Divalproex Sodium Delayed-Release 250 MG Tab.CR PO SCH (12:28)
--- NOTE | 2020-12-23 14:54 | PCM.PN ---
- General Info Date of Service: 12/23/20 Admission Dx/Problem (Free Text): Francois LIVE Admission History & Physical Patient Name: ILIANA LYONS Date of : 1950 Patient Status: Inpatient Attending Provider: Bubba Sharpe Date: 12/22/20 07:07 Initialization Date: 12/22/20 07:07 H&P History of Present Illness - General Date of Service: 12/22/20 Admit Problem/Dx: Admission Diagnosis/Problem Admission Diagnosis/Problem Sepsis Left lower extremity cellulitis Source of Information: Patient, Significant Other History Limitations: Reports: Other - History of Present Illness Initial Comments - Free Text/Narative: This is a 70F with PMhx of TBI, Bipolar disorder, GERD, undifferentiated tremors, suspected cognitive impairment presenting for worsening lower extremity edema of left leg. Hx limited by patient memory/cognitive issues. She lives in [facility] but over the last month has been taking cross country ride via recreational RV with chair lift. She and her friend made it to [place] but then the patient was hospitalized for about a week. Details of hospitalization unclear, there was concern for possible bacteremia; and it sounds like the patient was discharged with antibiotics for cellulitis of left leg. She presented to ED was febrile, had elevated WBC. She was given solumedrol initially and vancomycin +ceftriaxone and admitted for further evaluation. She currently denies headache, chest pain, sob , nausea, vomiting, diarrhea, abdominal pain. - Related Data Allergies/Adverse Reactions: Allergies Allergy/AdvReac Type Severity Reaction Status Date / Time No Known Allergies Allergy Verified 12/21/20 17:47 Home Medications: Home Meds Aspirin [Aspirin EC] 81 mg PO DAILY 12/21/20 [History] Calcium Carbonate [Calcium] 500 mg PO QPM 12/21/20 [History] Cholecalciferol (Vitamin D3) [Vitamin D] 1,000 unit PO DAILY 12/21/20 [History] Cyanocobalamin (Vitamin B-12) [Vitamin B-12] 1,000 mcg PO DAILY 12/21/20 [History] Cyclobenzaprine [Flexeril] 10 mg PO BEDTIME 12/21/20 [History] Doxepin [SINEquan] 25 mg PO BEDTIME 12/21/20 [History] Levorphanol Tartrate 1 mg PO QPM 12/21/20 [History] [place] Carbonate 300 mg PO DAILY 12/21/20 [History] [place] Carbonate 600 mg PO QPM 12/21/20 [History] Magnesium 0 mg PO QPM 12/21/20 [History] Multivitamin 1 each PO DAILY 12/21/20 [History] Omeprazole Magnesium [Prilosec Otc] 80 mg PO DAILY 12/21/20 [History] Topiramate [Topamax] 200 mg PO QPM 12/21/20 [History] lamoTRIgine [LaMICtal] 150 mg PO BID 12/21/20 [History] oxyCODONE HCl [Oxycodone HCl] 15 mg PO TID PRN 12/21/20 [History] Past Medical History Respiratory History: Reports: COPD, SOB Gastrointestinal History: Reports: G[employer]ING History: Reports: Other (See Below) Other OB/BYN History: hysterctomy Musculoskeletal History: Reports: Back Pain, Chronic Neurological History: Reports: Brain Injury Endocrine/Metabolic History: Reports: Obesity/BMI 30+ Oncologic (Cancer) History: Reports: Uterine - Past Surgical History Neurological Surgical History: Reports: Other (See Below) Other Neurological Surgeries/Procedures: brain surgury Social & Family History - Family History Family Medical History: No Pertinent Family History - Tobacco Use Tobacco Use Status *Q: Former Tobacco User Years of Tobacco use: 25 Used Tobacco, but Quit: Yes Month/Year Tobacco Last Used: 1994 - Caffeine Use Caffeine Use: Reports: Coffee Caffeine Use Comment: Unknown due to pt condition. - Recreational Drug Use Recreational Drug Use: No H&P Review of Systems - Review of Systems: Review Of Systems: Comprehensive ROS is negative, except as noted in HPI. Exam - Exam Exam: See Below - Vital Signs Vital Signs: Last Vital Signs Temp 97.5 F 12/22/20 06:39 Pulse 96 12/22/20 06:39 Resp 19 12/22/20 06:39 BP 118/77 12/22/20 06:39 Pulse Ox 99 12/22/20 06:39 Weight: 241 lb 11.2 oz - Exam Physical Exam Comments:: Gen: elderly female in no distress HEENT: NCAT EOMI MMM Neck: Supple CV RRR normal s1 s2] Lungs; CTAB Abd: soft, nt, nd Neuro: Alert to place but not time; baseline cognitive impairment from hx of TBI, moving extremities; appears at baseline state MSK: Age appropriate muscle mass Skin: erythema, edema of left lower extremity to mid shrestha Psych: appropriate affect. - Patient Data Lab Results Last 24 hrs: Laboratory Results - last 24 hr 12/21/20 12/21/20 12/21/20 Range/Units 08:10 17:46 17:46 WBC 21.88 H (3.98-10.04) K/mm3 RBC 4.00 (3.98-5.22) M/mm3 Hgb 10.2 L (11.2-15.7) gm/dl Hct 35.0 (34.1-44.9) % MCV 87.5 (79.4-94.8) fl MCH 25.5 L (25.6-32.2) pg MCHC 29.1 L (32.2-35.5) g/dl RDW Std Deviation 67.8 H (36.4-46.3) fL Plt Count 410 H (182-369) K/mm3 MPV 11.2 (9.4-12.3) fl Neut % (Auto) 80.7 H (34.0-71.1) % Lymph % (Auto) 8.7 L (19.3-51.7) % [place] % (Auto) 7.8 (4.7-12.5) % Eos % (Auto) 1.6 (0.7-5.8) Baso % (Auto) 0.2 (0.1-1.2) % Neut # (Auto) 17.64 H (1.56-6.13) K/mm3 Lymph # (Auto) 1.91 (1.18-3.74) K/mm3 [place] # (Auto) 1.70 H (0.24-0.36) K/mm3 Eos # (Auto) 0.36 (0.04-0.36) K/mm3 Baso # (Auto) 0.05 (0.01-0.08) K/mm3 Manual Slide Review Abnormal smear PT 10.3 (9.7-12.0) SECONDS INR 0.96 APTT 22.8 (21.7-31.4) SECONDS Puncture Site ABG pH (7.35-7.45) ABG pCO2 (35.0-45.0) mmHg ABG pO2 (80.0-100.0) mmHg ABG HCO3 (22.0-26.0) meq/L ABG O2 Saturation (96.0-97.0) % ABG Base Excess (-2-2.0) A-a Gradient mmHg O2 Delivery Device Oxygen Flow Rate FiO2 (21.00-100.00) % Sodium (136-145) mEq/L Potassium (3.5-5.1) mEq/L Chloride (98-107) mEq/L Carbon Dioxide (21-32) mEq/L Anion Gap (5-15) BUN (7-18) mg/dL Creatinine (0.55-1.02) mg/dL Est Cr Clr Drug Dosing mL/min Estimated GFR (MDRD) (>60) mL/min BUN/Creatinine Ratio (14-18) Glucose (70-99) mg/dL POC Glucose (70-99) mg/dL Lactic Acid (0.4-2.0) mmol/L Calcium (8.5-10.1) mg/dL Magnesium (1.8-2.4) mg/dL Total Bilirubin (0.2-1.0) mg/dL AST (15-37) U/L ALT (14-59) U/L Alkaline Phosphatase (46-116) U/L Ammonia 13 (11-32) umol/L Troponin I (0.00-0.056) ng/mL C-Reactive Protein (<1.0) mg/dL NT-Pro-B Natriuret Pep (0-125) pg/mL Total Protein (6.4-8.2) g/dl Albumin (3.4-5.0) g/dl Globulin gm/dL Albumin/Globulin Ratio (1-2) Urine Color (Yellow) Urine Appearance (Clear) Urine pH (5.0-8.0) Ur Specific [place] (1.005-1.030) Urine Protein (Negative) Urine Glucose (UA) (Negative) Urine Ketones (Negative) Urine Occult Blood (Negative) Urine Nitrite (Negative) Urine Bilirubin (Negative) Urine Urobilinogen (0.2-1.0) Ur Leukocyte Esterase (Negative) U Hyaline Cast (Auto) (0-5) /lpf Urine RBC (0-5) /hpf Urine WBC (0-5) /hpf Ur Squamous Epith Cells (0-5) /hpf Urine Bacteria (FEW) /hpf Urine Mucus (FEW) /hpf SARS-CoV-2 RNA (SORAYA) (NEGATIVE) 12/21/20 12/21/20 12/21/20 Range/Units 17:46 17:46 17:46 WBC (3.98-10.04) K/mm3 RBC (3.98-5.22) M/mm3 Hgb (11.2-15.7) gm/dl Hct (34.1-44.9) % MCV (79.4-94.8) fl MCH (25.6-32.2) pg MCHC (32.2-35.5) g/dl RDW Std Deviation (36.4-46.3) fL Plt Count (182-369) K/mm3 MPV (9.4-12.3) fl Neut % (Auto) (34.0-71.1) % Lymph % (Auto) (19.3-51.7) % [place] % (Auto) (4.7-12.5) % Eos % (Auto) (0.7-5.8) Baso % (Auto) (0.1-1.2) % Neut # (Auto) (1.56-6.13) K/mm3 Lymph # (Auto) (1.18-3.74) K/mm3 [place] # (Auto) (0.24-0.36) K/mm3 Eos # (Auto) (0.04-0.36) K/mm3 Baso # (Auto) (0.01-0.08) K/mm3 Manual Slide Review PT (9.7-12.0) SECONDS INR APTT (21.7-31.4) SECONDS Puncture Site ABG pH (7.35-7.45) ABG pCO2 (35.0-45.0) mmHg ABG pO2 (80.0-100.0) mmHg ABG HCO3 (22.0-26.0) meq/L ABG O2 Saturation (96.0-97.0) % ABG Base Excess (-2-2.0) A-a Gradient mmHg O2 Delivery Device Oxygen Flow Rate FiO2 (21.00-100.00) % Sodium 138 (136-145) mEq/L Potassium 4.9 (3.5-5.1) mEq/L Chloride 106 (98-107) mEq/L Carbon Dioxide 24 (21-32) mEq/L Anion Gap 12.9 (5-15) BUN 24 H (7-18) mg/dL Creatinine 1.8 H (0.55-1.02) mg/dL Est Cr Clr Drug Dosing 24.75 mL/min Estimated GFR (MDRD) 28 (>60) mL/min BUN/Creatinine Ratio 13.3 L (14-18) Glucose 117 H (70-99) mg/dL POC Glucose (70-99) mg/dL Lactic Acid 0.8 (0.4-2.0) mmol/L Calcium 9.4 (8.5-10.1) mg/dL Magnesium 2.6 H (1.8-2.4) mg/dL Total Bilirubin 0.3 (0.2-1.0) mg/dL AST 21 (15-37) U/L ALT 37 (14-59) U/L Alkaline Phosphatase 132 H (46-116) U/L Ammonia (11-32) umol/L Troponin I < 0.017 (0.00-0.056) ng/mL C-Reactive Protein 1.6 H* (<1.0) mg/dL NT-Pro-B Natriuret Pep 77 (0-125) pg/mL Total Protein 6.9 (6.4-8.2) g/dl Albumin 2.9 L (3.4-5.0) g/dl Globulin 4.0 gm/dL Albumin/Globulin Ratio 0.7 L (1-2) Urine Color (Yellow) Urine Appearance (Clear) Urine pH (5.0-8.0) Ur Specific [place] (1.005-1.030) Urine Protein (Negative) Urine Glucose (UA) (Negative) Urine Ketones (Negative) Urine Occult Blood (Negative) Urine Nitrite (Negative) Urine Bilirubin (Negative) Urine Urobilinogen (0.2-1.0) Ur Leukocyte Esterase (Negative) U Hyaline Cast (Auto) (0-5) /lpf Urine RBC (0-5) /hpf Urine WBC (0-5) /hpf Ur Squamous Epith Cells (0-5) /hpf Urine Bacteria (FEW) /hpf Urine Mucus (FEW) /hpf SARS-CoV-2 RNA (SORAYA) (NEGATIVE) 12/21/20 12/21/20 12/21/20 Range/Units 17:48 17:54 17:55 WBC (3.98-10.04) K/mm3 RBC (3.98-5.22) M/mm3 Hgb (11.2-15.7) gm/dl Hct (34.1-44.9) % MCV (79.4-94.8) fl MCH (25.6-32.2) pg MCHC (32.2-35.5) g/dl RDW Std Deviation (36.4-46.3) fL Plt Count (182-369) K/mm3 MPV (9.4-12.3) fl Neut % (Auto) (34.0-71.1) % Lymph % (Auto) (19.3-51.7) % [place] % (Auto) (4.7-12.5) % Eos % (Auto) (0.7-5.8) Baso % (Auto) (0.1-1.2) % Neut # (Auto) (1.56-6.13) K/mm3 Lymph # (Auto) (1.18-3.74) K/mm3 [place] # (Auto) (0.24-0.36) K/mm3 Eos # (Auto) (0.04-0.36) K/mm3 Baso # (Auto) (0.01-0.08) K/mm3 Manual Slide Review PT (9.7-12.0) SECONDS INR APTT (21.7-31.4) SECONDS Puncture Site Rt radial ABG pH 7.35 (7.35-7.45) ABG pCO2 43.0 (35.0-45.0) mmHg ABG pO2 93.0 (80.0-100.0) mmHg ABG HCO3 23.2 (22.0-26.0) meq/L ABG O2 Saturation 97.0 (96.0-97.0) % ABG Base Excess -1.7 (-2-2.0) A-a Gradient 281 mmHg O2 Delivery Device Nonrebreather Oxygen Flow Rate 10.0 FiO2 60.00 (21.00-100.00) % Sodium (136-145) mEq/L Potassium (3.5-5.1) mEq/L Chloride (98-107) mEq/L Carbon Dioxide (21-32) mEq/L Anion Gap (5-15) BUN (7-18) mg/dL Creatinine (0.55-1.02) mg/dL Est Cr Clr Drug Dosing mL/min Estimated GFR (MDRD) (>60) mL/min BUN/Creatinine Ratio (14-18) Glucose (70-99) mg/dL POC Glucose 107 H (70-99) mg/dL Lactic Acid (0.4-2.0) mmol/L Calcium (8.5-10.1) mg/dL Magnesium (1.8-2.4) mg/dL Total Bilirubin (0.2-1.0) mg/dL AST (15-37) U/L ALT (14-59) U/L Alkaline Phosphatase (46-116) U/L Ammonia (11-32) umol/L Troponin I (0.00-0.056) ng/mL C-Reactive Protein (<1.0) mg/dL NT-Pro-B Natriuret Pep (0-125) pg/mL Total Protein (6.4-8.2) g/dl Albumin (3.4-5.0) g/dl Globulin gm/dL Albumin/Globulin Ratio (1-2) Urine Color (Yellow) Urine Appearance (Clear) Urine pH (5.0-8.0) Ur Specific [place] (1.005-1.030) Urine Protein (Negative) Urine Glucose (UA) (Negative) Urine Ketones (Negative) Urine Occult Blood (Negative) Urine Nitrite (Negative) Urine Bilirubin (Negative) Urine Urobilinogen (0.2-1.0) Ur Leukocyte Esterase (Negative) U Hyaline Cast (Auto) (0-5) /lpf Urine RBC (0-5) /hpf Urine WBC (0-5) /hpf Ur Squamous Epith Cells (0-5) /hpf Urine Bacteria (FEW) /hpf Urine Mucus (FEW) /hpf SARS-CoV-2 RNA (SORAYA) Negative (NEGATIVE) 12/21/20 12/21/20 Range/Units 18:00 22:40 WBC (3.98-10.04) K/mm3 RBC (3.98-5.22) M/mm3 Hgb (11.2-15.7) gm/dl Hct (34.1-44.9) % MCV (79.4-94.8) fl MCH (25.6-32.2) pg MCHC (32.2-35.5) g/dl RDW Std Deviation (36.4-46.3) fL Plt Count (182-369) K/mm3 MPV (9.4-12.3) fl Neut % (Auto) (34.0-71.1) % Lymph % (Auto) (19.3-51.7) % [place] % (Auto) (4.7-12.5) % Eos % (Auto) (0.7-5.8) Baso % (Auto) (0.1-1.2) % Neut # (Auto) (1.56-6.13) K/mm3 Lymph # (Auto) (1.18-3.74) K/mm3 [place] # (Auto) (0.24-0.36) K/mm3 Eos # (Auto) (0.04-0.36) K/mm3 Baso # (Auto) (0.01-0.08) K/mm3 Manual Slide Review PT (9.7-12.0) SECONDS INR APTT (21.7-31.4) SECONDS Puncture Site ABG pH (7.35-7.45) ABG pCO2 (35.0-45.0) mmHg ABG pO2 (80.0-100.0) mmHg ABG HCO3 (22.0-26.0) meq/L ABG O2 Saturation (96.0-97.0) % ABG Base Excess (-2-2.0) A-a Gradient mmHg O2 Delivery Device Oxygen Flow Rate FiO2 (21.00-100.00) % Sodium (136-145) mEq/L Potassium (3.5-5.1) mEq/L Chloride (98-107) mEq/L Carbon Dioxide (21-32) mEq/L Anion Gap (5-15) BUN (7-18) mg/dL Creatinine (0.55-1.02) mg/dL Est Cr Clr Drug Dosing mL/min Estimated GFR (MDRD) (>60) mL/min BUN/Creatinine Ratio (14-18) Glucose (70-99) mg/dL POC Glucose (70-99) mg/dL Lactic Acid 0.6 (0.4-2.0) mmol/L Calcium (8.5-10.1) mg/dL Magnesium (1.8-2.4) mg/dL Total Bilirubin (0.2-1.0) mg/dL AST (15-37) U/L ALT (14-59) U/L Alkaline Phosphatase (46-116) U/L Ammonia (11-32) umol/L Troponin I (0.00-0.056) ng/mL C-Reactive Protein (<1.0) mg/dL NT-Pro-B Natriuret Pep (0-125) pg/mL Total Protein (6.4-8.2) g/dl Albumin (3.4-5.0) g/dl Globulin gm/dL Albumin/Globulin Ratio (1-2) Urine Color Yellow (Yellow) Urine Appearance Clear (Clear) Urine pH 6.0 (5.0-8.0) Ur Specific [place] 1.010 (1.005-1.030) Urine Protein Negative (Negative) Urine Glucose (UA) Negative (Negative) Urine Ketones Negative (Negative) Urine Occult Blood 1+ H (Negative) Urine Nitrite Negative (Negative) Urine Bilirubin Negative (Negative) Urine Urobilinogen 0.2 (0.2-1.0) Ur Leukocyte Esterase Negative (Negative) U Hyaline Cast (Auto) 5-10 H (0-5) /lpf Urine RBC 0-5 (0-5) /hpf Urine WBC Not seen (0-5) /hpf Ur Squamous Epith Cells 0-5 (0-5) /hpf Urine Bacteria Rare (FEW) /hpf Urine Mucus Rare (FEW) /hpf SARS-CoV-2 RNA (SORAYA) (NEGATIVE) Result Diagrams: 12/22/20 08:45 12/22/20 08:45 Harry Results Last 24 hrs: Microbiology 12/21/20 18:03 Anaerobic Blood Culture - Final Blood - Venous Sepsis Event Note - Evaluation Sepsis Screening Result: No Definite Risk - Focused Exam Vital Signs: Vital Signs Temp Pulse Resp BP Pulse Ox Pulse Ox 12/22/20 06:39 97.5 F 96 19 118/77 99 12/22/20 05:33 99 12/22/20 03:47 98.7 F 99 15 104/51 L 98 12/22/20 00:40 97.0 F 66 30 H 95/57 L 99 12/21/20 23:45 94 L 12/21/20 23:42 96.8 F L 69 17 96 12/21/20 22:21 70 100/58 L 12/21/20 22:10 68 18 95/59 L 94 L 12/21/20 21:06 74 20 107/66 99 12/21/20 20:44 97.5 F 98 18 98/56 L 97 12/21/20 19:45 96.7 F L 73 16 89/60 L 98 *Q Meaningful Use (ADM) - VTE *Q VTE Criteria *Q: 2 Problem List Initiated/Reviewed/Updated: Yes Orders Last 24hrs: Active Orders 24 hr Category Date Time Status Admission Status [Patient Status] [ADT] Routine ADT 12/21/20 20:34 Active Bedrest Bathroom Privileges [RC] ASDIRECTED Care 12/21/20 23:45 Active Cardiac Monitoring [RC] . DIRECTED Care 12/21/20 17:46 Active Oxygen Therapy [RC] PRN Care 12/21/20 17:46 Active Regular Diet [DIET] Diet 12/22/20 Breakfast Active Chest 1V Frontal [CR] Stat Exams 12/21/20 17:47 Taken Head wo Cont [CT] Stat Exams 12/21/20 19:39 Taken CULTURE BLOOD [BC] Stat Lab 12/21/20 18:03 Results CULTURE BLOOD [BC] Stat Lab 12/21/20 18:13 Received LITHIUM [REF] Stat Lab 12/21/20 17:46 Received Acetaminophen [TylenoL] Med 12/21/20 23:50 Active 975 mg PO Q6H PRN Ondansetron [Zofran] Med 12/21/20 23:51 Active 4 mg IVPUSH Q6H PRN Sodium Chloride 0.9% [Normal Saline] 1,000 ml Med 12/21/20 23:45 Active IV ASDIRECTED Sodium Chloride 0.9% [Saline Flush] Med 12/21/20 17:46 Active 10 ml FLUSH ASDIRECTED PRN cefTRIAXone [Rocephin] 2 gm Med 12/22/20 18:00 Active Sodium Chloride 0.9% [Normal Saline] 100 ml IV Q24H Blood Culture x2 Reflex Set [OM.PC] Stat Oth 12/21/20 17:47 Ordered Peripheral IV Insertion Adult [OM.PC] Stat Oth 12/21/20 17:46 Ordered Code Status [Resuscitation Status] Routine Resus Stat 12/21/20 23:53 Ordered Medication Orders Acetaminophen (Acetaminophen 325 Mg Tab) 975 mg PO Q6H PRN PRN Reason: Pain/Fever Sodium Chloride (Normal Saline) 1,000 mls @ 125 mls/hr IV ASDIRECTED EMMANUEL Last Admin: 12/22/20 02:20 Dose: 125 mls/hr Documented by: Infusion: 12/22/20 02:20 Dose: 125 mls/hr Documented by: Admin: 12/21/20 23:54 Dose: 125 mls/hr Documented by: RUTH Ceftriaxone Sodium 2 gm/ (Sodium Chloride) 100 mls @ 200 mls/hr IV Q24H EMMANUEL Ondansetron HCl (Ondansetron 4 Mg/2 Ml Sdv) 4 mg IVPUSH Q6H PRN PRN Reason: Nausea/Vomiting Sodium Chloride (Sodium Chloride 0.9% 10 Ml Syringe) 10 ml FLUSH ASDIRECTED PRN PRN Reason: Keep Vein Open Last Admin: 12/21/20 18:05 Dose: 10 ml Documented by: ANTONIA Assessment/Plan Comment:: Assessment: This is a 70F with PMhx of TBI, Bipolar disorder, GERD, undiffer entiated tremors, suspected cognitive impairment presenting for worsening lower extremity edema of left leg; fever, tachycardia and leukocytosis. Hx limited by patient memory/cognitive issues. She lives in [facility] but over the last month has been taking cross country ride via recreational RV with chair lift. She and her friend made it to [place] but then the patient was hospitalized for about a week. Details of hospitalization unclear, there was concern for possible bacteremia; and it sounds like the patient was discharged with antibiotics for cellulitis of left leg. She presented to ED was febrile, had elevated WBC. She was given solumedrol initially and vancomycin +ceftriaxone and admitted for further evaluation. 1. Sepsis secondary to left lower extremity edema; fever; tachycardia; leukocytosis 2. Hx of TBI with cognitive impairment 3. Hx of Bipolar disorder 4. Hx of tremors details unknown 5. Hx of GERD 6. Mild hypernatremia 7. MARISOL; likely pre-renal 8. Generalized weakness Plan -admit to inpatient -obtain blood culture -continue vanco+ceftriaxone -continue PPI -pain control -PT/OT/SW consults -obtain hospital records -switch IVF to 1/2 NS Code-Full DVT-heparin subq Dispo-may need short term rehab; anticipated LOS 2-3 days - Mortality Measure Prognosis:: Good Subjective Update: 12/23/20 afebrile/vss p.e. lungs clear but decreased and equal. cor: rrr without m s3/s4 abd : benign neuro : forgetful but ao4 and good insight. moderate tremor notedboth hands and less in legs m.s: edema 2-3 plus to knees pulses palp 1 plus at knee and ankles and strong d.p. bilaterally . skin: brownish and slight clear discharge form medial shins. no tender ness and mild warmth . s.q changesa nd mild o.a changes . lab: blood c/s negative off antibiotics . lithium level 1.7 Hypernatremia: lytes good. other than na 152( worse) crf: creatinine 1.3 and appears fairly stable and urine output not good and does not take lasix sec to accidents and balance issues. she needs loop diuretic. possible this is mostly prerenal failure but bnp normal on admit and only hypoxia and macias worsened lately . ?sepsis: cbc coming down and will switch to oral antibiotics and cont to monitor. lithium toxicity: prob cause of hypernatremia. hold today and recheck in am . depakote given sec . to bipolar issues and behavior problems anticipated by sign . other. pain control much better but on multiple sedating meds including cyclobenz and opiods and she appears to be a possible maria fernanda concern but mild snorer by hx. bipolar disorder on topimax/lithium/lamictal / tci and discussed with sign. other being off lithium sec. to high levels and hypernatremia . trying to decrease polypharmacy cad event and p.e ruled out. plan convert to oral antibiotic augmentin. decrease i.v and allow free water intake. monitor na and i/os. reconsider lasix and dc amelioride sec to na and effacacy concerns. receck na in am off lithium x 24 hours. arrange for follow up with primary provider/psyche provider ,start depakote. boh Functional Status: Reports: Pain Controlled - Review of Systems General: Reports: No Symptoms HEENT: Reports: No Symptoms Pulmonary: Reports: No Symptoms Cardiovascular: Reports: No Symptoms Gastrointestinal: Reports: No Symptoms Genitourinary: Reports: No Symptoms Musculoskeletal: Reports: Back Pain. Denies: No Symptoms Skin: Reports: No Symptoms Neurological: Reports: Tremors, Weakness. Denies: No Symptoms Psychiatric: Reports: No Symptoms, Anxiety - Patient Data Vitals - Most Recent: Last Vital Signs Temp 36.4 C 12/23/20 11:12 Pulse 72 12/23/20 11:12 Resp 16 12/23/20 11:12 BP 130/86 12/23/20 11:12 Pulse Ox 100 12/23/20 13:35 Weight - Most Recent: 108.817 kg I&O - Last 24 Hours: Intake & Output 12/22/20 12/23/20 12/23/20 22:59 06:59 14:59 Intake Total 3746 1180 820 Output Total 1999 1250 Balance 1746 -70 820 Lab Results Last 24 Hours: Laboratory Results - last 24 hr 12/23/20 12/23/20 12/23/20 Range/Units 06:27 06:27 06:27 WBC 14.62 H (3.98-10.04) K/mm3 RBC 4.12 (3.98-5.22) M/mm3 Hgb 10.4 L (11.2-15.7) gm/dl Hct 37.3 (34.1-44.9) % MCV 90.5 (79.4-94.8) fl MCH 25.2 L (25.6-32.2) pg MCHC 27.9 L (32.2-35.5) g/dl RDW Std Deviation 72.1 H (36.4-46.3) fL Plt Count 379 H (182-369) K/mm3 MPV 11.4 (9.4-12.3) fl Neut % (Auto) 78.4 H (34.0-71.1) % Lymph % (Auto) 9.9 L (19.3-51.7) % [place] % (Auto) 8.5 (4.7-12.5) % Eos % (Auto) 2.3 (0.7-5.8) Baso % (Auto) 0.2 (0.1-1.2) % Neut # (Auto) 11.46 H (1.56-6.13) K/mm3 Lymph # (Auto) 1.45 (1.18-3.74) K/mm3 [place] # (Auto) 1.25 H (0.24-0.36) K/mm3 Eos # (Auto) 0.33 (0.04-0.36) K/mm3 Baso # (Auto) 0.03 (0.01-0.08) K/mm3 Manual Slide Review Normal smear Sodium 152 H (136-145) mEq/L Potassium 4.1 (3.5-5.1) mEq/L Chloride 119 H (98-107) mEq/L Carbon Dioxide 23 (21-32) mEq/L Anion Gap 14.1 (5-15) BUN 15 (7-18) mg/dL Creatinine 1.3 H (0.55-1.02) mg/dL Est Cr Clr Drug Dosing 34.27 mL/min Estimated GFR (MDRD) 40 (>60) mL/min BUN/Creatinine Ratio 11.5 L (14-18) Glucose 87 (70-99) mg/dL Hemoglobin A1c 4.8 ( - 5.6) % Calcium 10.1 (8.5-10.1) mg/dL TSH 3rd Generation (0.358-3.74) uIU/mL 12/23/20 Range/Units 06:27 WBC (3.98-10.04) K/mm3 RBC (3.98-5.22) M/mm3 Hgb (11.2-15.7) gm/dl Hct (34.1-44.9) % MCV (79.4-94.8) fl MCH (25.6-32.2) pg MCHC (32.2-35.5) g/dl RDW Std Deviation (36.4-46.3) fL Plt Count (182-369) K/mm3 MPV (9.4-12.3) fl Neut % (Auto) (34.0-71.1) % Lymph % (Auto) (19.3-51.7) % [place] % (Auto) (4.7-12.5) % Eos % (Auto) (0.7-5.8) Baso % (Auto) (0.1-1.2) % Neut # (Auto) (1.56-6.13) K/mm3 Lymph # (Auto) (1.18-3.74) K/mm3 [place] # (Auto) (0.24-0.36) K/mm3 Eos # (Auto) (0.04-0.36) K/mm3 Baso # (Auto) (0.01-0.08) K/mm3 Manual Slide Review Sodium (136-145) mEq/L Potassium (3.5-5.1) mEq/L Chloride (98-107) mEq/L Carbon Dioxide (21-32) mEq/L Anion Gap (5-15) BUN (7-18) mg/dL Creatinine (0.55-1.02) mg/dL Est Cr Clr Drug Dosing mL/min Estimated GFR (MDRD) (>60) mL/min BUN/Creatinine Ratio (14-18) Glucose (70-99) mg/dL Hemoglobin A1c ( - 5.6) % Calcium (8.5-10.1) mg/dL TSH 3rd Generation 2.601 (0.358-3.74) uIU/mL Harry Results Last 24 Hours: Microbiology 12/22/20 09:10 Aerobic Blood Culture - Preliminary Blood - Venous - Lab Draw NO GROWTH AFTER 1 DAY Anaerobic Blood Culture - Preliminary NO GROWTH AFTER 1 DAY 12/22/20 08:45 Aerobic Blood Culture - Preliminary Blood - Venous NO GROWTH AFTER 1 DAY Anaerobic Blood Culture - Preliminary NO GROWTH AFTER 1 DAY 12/21/20 18:03 Aerobic Blood Culture - Preliminary Blood - Venous NO GROWTH AFTER 1 DAY Anaerobic Blood Culture - Final 12/21/20 18:13 Aerobic Blood Culture - Preliminary Blood - Venous - Lab Draw NO GROWTH AFTER 1 DAY Anaerobic Blood Culture - Preliminary NO GROWTH AFTER 1 DAY Med Orders - Current: Current Medications Acetaminophen (Acetaminophen 325 Mg Tab) 975 mg PO Q6H PRN PRN Reason: Pain/Fever Albuterol/Ipratropium (Albuterol/Ipratropium 3.0-0.5 Mg/3 Ml Neb Soln) 3 ml NEB Q4H PRN PRN Reason: Shortness Of Breath/wheezing Amiloride HCl (Amiloride 5 Mg Tab) 5 mg PO BID [facility] Last Admin: 12/23/20 08:20 Dose: 5 mg Documented by: Amoxicillin/Clavulanate Potassium (Amoxicillin/Clavulanate K 875-125 Mg Tab) 1 tab PO Q12HR [facility] Aspirin (Aspirin 81 Mg Tab.Ec) 81 mg PO DAILY [facility] Last Admin: 12/23/20 08:08 Dose: 81 mg Documented by: Cholecalciferol (Cholecalciferol (Vitamin D3) 25 Mcg Tab) 25 mcg PO DAILY [facility] Last Admin: 12/23/20 08:07 Dose: 25 mcg Documented by: Cyanocobalamin (Cyanocobalamin (Vitamin B12) 1,000 Mcg Tab) 1,000 mcg PO DAILY [facility] Last Admin: 12/23/20 08:07 Dose: 1,000 mcg Documented by: Cyclobenzaprine HCl (Cyclobenzaprine 10 Mg Tab) 10 mg PO BEDTIME [facility] Last Admin: 12/22/20 20:04 Dose: 10 mg Documented by: Divalproex Sodium (Divalproex Sodium Delayed-Release 250 Mg Tab.Cr) 250 mg PO BIDMEALS [facility] Last Admin: 12/23/20 12:44 Dose: 250 mg Documented by: Doxepin HCl (Doxepin 10 Mg Cap) 10 mg PO BEDTIME [facility] Last Admin: 12/22/20 20:05 Dose: Not Given Documented by: Heparin Sodium (Porcine) (Heparin Sodium 5,000 Units/Ml Vial) 5,000 units SUBCUT Q8H [facility] Last Admin: 12/23/20 08:06 Dose: 5,000 units Documented by: Hydromorphone HCl (Hydromorphone 0.5 Mg/0.5 Ml Syringe) 0.5 mg IVPUSH Q2H PRN PRN Reason: Pain (severe 7-10) Last Admin: 12/23/20 08:16 Dose: 0.5 mg Documented by: Ceftriaxone Sodium 2 gm/ (Sodium Chloride) 100 mls @ 200 mls/hr IV Q24H [facility] Stop: 12/23/20 23:59 Last Admin: 12/22/20 20:06 Dose: 200 mls/hr Documented by: Vancomycin HCl 1.75 gm/ Sodium (Chloride) 500 mls @ 250 mls/hr IV Q24H [facility] Stop: 12/23/20 23:59 Last Admin: 12/22/20 18:17 Dose: 250 mls/hr Documented by: Lamotrigine (Lamotrigine 100 Mg Tab) 150 mg PO BID [facility] Last Admin: 12/23/20 08:06 Dose: 150 mg Documented by: Ondansetron HCl (Ondansetron 4 Mg/2 Ml Sdv) 4 mg IVPUSH Q6H PRN PRN Reason: Nausea/Vomiting Oxycodone HCl (Oxycodone 5 Mg Tab) 5 mg PO Q4H PRN PRN Reason: Pain (moderate 4-6) Last Admin: 12/23/20 01:46 Dose: 5 mg Documented by: Pantoprazole Sodium (Pantoprazole 40 Mg Tab.Cr) 40 mg PO DAILY [facility] Last Admin: 12/23/20 08:06 Dose: 40 mg Documented by: Sodium Chloride (Sodium Chloride 0.9% 10 Ml Syringe) 10 ml FLUSH ASDIRECTED PRN PRN Reason: Keep Vein Open Last Admin: 12/21/20 18:05 Dose: 10 ml Documented by: Topiramate (Topiramate 100 Mg Tab) 100 mg PO BEDTIME [facility] Last Admin: 12/22/20 20:04 Dose: 100 mg Documented by: Vancomycin HCl (Pharmacy To Dose - Vancomycin) 1 dose .XX ASDIRECTED PRN PRN Reason: RX TO DOSE VANCO Discontinued Medications Ceftriaxone Sodium (Ceftriaxone 2 Gm Advvial) Confirm Administered Dose 2 gm IV .STK-MED ONE Stop: 12/21/20 18:22 Last Admin: 12/21/20 18:32 Dose: Not Given Documented by: Doxepin HCl (Doxepin 25 Mg Cap) 25 mg PO BEDTIME [facility] Sodium Chloride (Normal Saline) 1,000 mls @ 1,000 mls/hr IV .BOLUS [facility] Last Admin: 12/21/20 18:05 Dose: 1,000 mls/hr Documented by: Ceftriaxone Sodium 2 gm/ (Sodium Chloride) 100 mls @ 200 mls/hr IV ONETIME ONE Stop: 12/21/20 18:46 Last Admin: 12/21/20 18:29 Dose: 200 mls/hr Documented by: Vancomycin HCl 2 gm/ Sodium (Chloride) 500 mls @ 250 mls/hr IV ONETIME ONE Stop: 12/21/20 19:40 Last Admin: 12/21/20 20:06 Dose: 250 mls/hr Documented by: Sodium Chloride (Normal Saline) 1,000 mls @ 125 mls/hr IV ASDIRECTED [facility] Last Admin: 12/22/20 08:49 Dose: 125 mls/hr Documented by: Sodium Chloride (Sodium Chloride 0.45%) 1,000 mls @ 75 mls/hr IV ASDIRECTED [facility] Last Admin: 12/23/20 07:23 Dose: 75 mls/hr Documented by: Sodium Chloride (Sodium Chloride 0.45%) 1,000 mls @ 20 mls/hr IV ASDIRECTED [facility] Ketorolac Tromethamine (Ketorolac 15 Mg/Ml Sdv) 15 mg IVPUSH ONETIME ONE Stop: 12/21/20 17:50 Last Admin: 12/21/20 18:04 Dose: 15 mg Documented by: Dysart Carbonate (Dysart Carbonate 300 Mg Cap) 300 mg PO DAILY [facility] Last Admin: 12/22/20 09:35 Dose: Not Given Documented by: Dysart Carbonate (Dysart Carbonate 300 Mg Cap) 600 mg PO QPM [facility] Dysart Carbonate (Dysart Carbonate 300 Mg Cap) 600 mg PO QPM [facility] Last Admin: 12/23/20 10:25 Dose: Not Given Documented by: Dysart Carbonate (Dysart Carbonate 300 Mg Cap) 300 mg PO DAILY [facility] Methylprednisolone Sodium Succinate (Methylprednisolone Sodium Succinate 125 Mg/2 Ml Sdv) 125 mg IVPUSH ONETIME ONE Stop: 12/21/20 17:50 Last Admin: 12/21/20 18:04 Dose: 125 mg Documented by: Topiramate (Topiramate 100 Mg Tab) 200 mg PO QPM [facility] Vancomycin HCl (Vancomycin 1 Gm Sdv) Confirm Administered Dose 2 gm .ROUTE .STK- MED ONE Stop: 12/22/20 17:43 Last Admin: 12/22/20 18:16 Dose: Not Given Documented by: - Exam Quality Assessment: Supplemental Oxygen (1 liter nc) General: Alert, Oriented HEENT: Pupils Equal, Pupils Reactive, EOMI, Mucous Membr. Moist/[place] Neck: Supple Lungs: Clear to Auscultation, Normal Respiratory Effort Cardiovascular: Regular Rate, Regular Rhythm GI/Abdominal Exam: Normal Bowel Sounds, Soft, Non-Tender, No Organomegaly, No Distention, No Abnormal Bruit, No Mass. No: Pelvis Stable (Female) Exam: Deferred. No: Normal External Exam, Normal Speculum Exam, Normal Bimanual Exam Back Exam: Normal Inspection, Full Range of Motion Extremities: Normal Inspection, Normal Range of Motion, Non-Tender, Normal Capillary Refill, Pedal Edema, Joint Swelling, Limited Range of Motion, Increased Warmth, Mottled, Redness. No: No Pedal Edema Skin: Warm, Dry, Intact Wound/Incisions: Healing Well Neurological: No New Focal Deficit Psy/Mental Status: Alert, Normal Affect, Normal Mood, Anxious - Patient Data Lab Results Last 24 hrs: Laboratory Results - last 24 hr 12/23/20 12/23/20 12/23/20 Range/Units 06:27 06:27 06:27 WBC 14.62 H (3.98-10.04) K/mm3 RBC 4.12 (3.98-5.22) M/mm3 Hgb 10.4 L (11.2-15.7) gm/dl Hct 37.3 (34.1-44.9) % MCV 90.5 (79.4-94.8) fl MCH 25.2 L (25.6-32.2) pg MCHC 27.9 L (32.2-35.5) g/dl RDW Std Deviation 72.1 H (36.4-46.3) fL Plt Count 379 H (182-369) K/mm3 MPV 11.4 (9.4-12.3) fl Neut % (Auto) 78.4 H (34.0-71.1) % Lymph % (Auto) 9.9 L (19.3-51.7) % [place] % (Auto) 8.5 (4.7-12.5) % Eos % (Auto) 2.3 (0.7-5.8) Baso % (Auto) 0.2 (0.1-1.2) % Neut # (Auto) 11.46 H (1.56-6.13) K/mm3 Lymph # (Auto) 1.45 (1.18-3.74) K/mm3 [place] # (Auto) 1.25 H (0.24-0.36) K/mm3 Eos # (Auto) 0.33 (0.04-0.36) K/mm3 Baso # (Auto) 0.03 (0.01-0.08) K/mm3 Manual Slide Review Normal smear Sodium 152 H (136-145) mEq/L Potassium 4.1 (3.5-5.1) mEq/L Chloride 119 H (98-107) mEq/L Carbon Dioxide 23 (21-32) mEq/L Anion Gap 14.1 (5-15) BUN 15 (7-18) mg/dL Creatinine 1.3 H (0.55-1.02) mg/dL Est Cr Clr Drug Dosing 34.27 mL/min Estimated GFR (MDRD) 40 (>60) mL/min BUN/Creatinine Ratio 11.5 L (14-18) Glucose 87 (70-99) mg/dL Hemoglobin A1c 4.8 ( - 5.6) % Calcium 10.1 (8.5-10.1) mg/dL TSH 3rd Generation (0.358-3.74) uIU/mL 12/23/20 Range/Units 06:27 WBC (3.98-10.04) K/mm3 RBC (3.98-5.22) M/mm3 Hgb (11.2-15.7) gm/dl Hct (34.1-44.9) % MCV (79.4-94.8) fl MCH (25.6-32.2) pg MCHC (32.2-35.5) g/dl RDW Std Deviation (36.4-46.3) fL Plt Count (182-369) K/mm3 MPV (9.4-12.3) fl Neut % (Auto) (34.0-71.1) % Lymph % (Auto) (19.3-51.7) % [place] % (Auto) (4.7-12.5) % Eos % (Auto) (0.7-5.8) Baso % (Auto) (0.1-1.2) % Neut # (Auto) (1.56-6.13) K/mm3 Lymph # (Auto) (1.18-3.74) K/mm3 [place] # (Auto) (0.24-0.36) K/mm3 Eos # (Auto) (0.04-0.36) K/mm3 Baso # (Auto) (0.01-0.08) K/mm3 Manual Slide Review Sodium (136-145) mEq/L Potassium (3.5-5.1) mEq/L Chloride (98-107) mEq/L Carbon Dioxide (21-32) mEq/L Anion Gap (5-15) BUN (7-18) mg/dL Creatinine (0.55-1.02) mg/dL Est Cr Clr Drug Dosing mL/min Estimated GFR (MDRD) (>60) mL/min BUN/Creatinine Ratio (14-18) Glucose (70-99) mg/dL Hemoglobin A1c ( - 5.6) % Calcium (8.5-10.1) mg/dL TSH 3rd Generation 2.601 (0.358-3.74) uIU/mL Result Diagrams: 12/23/20 06:27 12/23/20 06:27 Harry Results Last 24 hrs: Microbiology 12/22/20 09:10 Aerobic Blood Culture - Preliminary Blood - Venous - Lab Draw NO GROWTH AFTER 1 DAY Anaerobic Blood Culture - Preliminary NO GROWTH AFTER 1 DAY 12/22/20 08:45 Aerobic Blood Culture - Preliminary Blood - Venous NO GROWTH AFTER 1 DAY Anaerobic Blood Culture - Preliminary NO GROWTH AFTER 1 DAY 12/21/20 18:03 Aerobic Blood Culture - Preliminary Blood - Venous NO GROWTH AFTER 1 DAY Anaerobic Blood Culture - Final 12/21/20 18:13 Aerobic Blood Culture - Preliminary Blood - Venous - Lab Draw NO GROWTH AFTER 1 DAY Anaerobic Blood Culture - Preliminary NO GROWTH AFTER 1 DAY Sepsis Event Note - Evaluation Sepsis Screening Result: No Definite Risk - Focused Exam Vital Signs: Vital Signs Temp Pulse Resp BP Pulse Ox Pulse Ox 12/23/20 13:35 100 12/23/20 11:12 36.4 C 72 16 130/86 92 L 12/23/20 07:30 36.4 C 75 16 142/82 H 99 12/23/20 04:37 36.5 C 76 20 135/69 99 - Problem List & Annotations (1) Tremor of both hands SNOMED Code(s): 728973559, 616089414 Code(s): R25.1 - TREMOR, UNSPECIFIED Status: Acute Priority: Medium Current Visit: Yes Onset Date: ~12/22/20 Annotation/Comment:: worsened by hx and present for many weeks/ mild weakness . gait unstable at times.no parkinsons (2) Chronic venous insufficiency of lower extremity SNOMED Code(s): 566982877 Code(s): I87.2 - VENOUS INSUFFICIENCY (CHRONIC) (PERIPHERAL) Status: Acute Priority: Medium Current Visit: Yes Onset Date: ~12/23/20 Annotation/Comment:: chronic vienous insuff and not treated and not wearing compression much. amelioride started and will monitor (3) Edema SNOMED Code(s): 250667556, 264205927 Code(s): R60.9 - EDEMA, UNSPECIFIED Status: Acute Priority: Medium Current Visit: Yes Onset Date: ~12/23/20 Qualifiers: Edema type: unspecified Qualified Code(s): R60.9 - Edema, unspecified Annotation/Comment:: moderatly pitting and thyroid normal. blood sugars elavated and check ua protien excretion but alb low normal. ? needs loop diuretic. (4) PAD (peripheral artery disease) SNOMED Code(s): 709463102 Code(s): I73.9 - PERIPHERAL VASCULAR DISEASE, UNSPECIFIED Status: Acute Priority: Medium Current Visit: Yes Onset Date: ~12/23/20 Annotation/Comment:: no claudication but pulses decreased both legs other than d.p. good . - Problem List Review Problem List Initiated/Reviewed/Updated: Yes - My Orders Last 24 Hours: My Active Orders 12/23/20 12:28 Divalproex Sodium 250 mg PO BIDMEALS 12/23/20 12:30 Tiotropium BR/Olodaterol HCL [Stiolto Respimat] 0 gm INH DAILY 12/24/20 06:27 CBC WITH AUTO DIFF [HEME] DAILY 12/24/20 06:30 CMP [COMPREHENSIVE METABOLIC PN,CMP] [CHEM] DAILY CRP [C-REACTIVE PROTEIN] [CHEM] DAILY 12/24/20 09:00 Amoxicillin/Clavulanate K [Augmentin 875 MG/125 MG] 1 tab PO Q12HR 12/25/20 06:27 CBC WITH AUTO DIFF [HEME] DAILY 12/25/20 06:30 CMP [COMPREHENSIVE METABOLIC PN,CMP] [CHEM] DAILY CRP [C-REACTIVE PROTEIN] [CHEM] DAILY - Assessment Assessment:: 12/23/20 afebrile/vss p.e. lungs clear but decreased and equal. cor: rrr without m s3/s4 abd : benign neuro : forgetful but ao4 and good insight. moderate tremor notedboth hands and less in legs m.s: edema 2-3 plus to knees pulses palp 1 plus at knee and ankles and strong d.p. bilaterally . skin: brownish and slight clear discharge form medial shins. no tenderness and mild warmth . s.q changesa nd mild o.a changes . lab: blood c/s negative off antibiotics . lithium level 1.7 Hypernatremia: lytes good. other than na 152( worse) crf: creatinine 1.3 and appears fairly stable and urine output not good and does not take lasix sec to accidents and balance issues. she needs loop diuretic. possible this is mostly prerenal failure but bnp normal on admit and only hypoxia and macias worsened lately . ?sepsis: cbc coming down and will switch to oral antibiotics and cont to monitor. lithium toxicity: prob cause of hypernatremia. hold today and recheck in am . depakote given sec . to bipolar issues and behavior problems anticipated by sign . other. pain control much better but on multiple sedating meds including cyclobenz and opiods and she appears to be a possible maria fernanda concern but mild snorer by hx. bipolar disorder on topimax/lithium/lamictal / tci and discussed with sign. other being off lithium sec. to high levels and hypernatremia . trying to decrease polypharmacy cad event and p.e ruled out. plan convert to oral antibiotic augmentin. decrease i.v and allow free water intake. monitor na and i/os. reconsider lasix and dc amelioride sec to na and effacacy concerns. receck na in am off lithium x 24 hours. arrange for follow up with primary provider/psyche provider ,start depakote. boh - Plan Plan:: Assessment: This is a 70F with PMhx of TBI, Bipolar disorder, GERD, undifferentiated tremors, suspected cognitive impairment presenting for worsening lower extremity edema of left leg; fever, tachycardia and leukocytosis. Hx limited by patient memory/cognitive issues. She lives in [facility] but over the last month has been taking cross country ride via recreational RV with chair lift. She and her friend made it to [place] but then the patient was hospitalized for about a week. Details of hospitalization unclear, there was concern for possible bacteremia; and it sounds like the patient was discharged with antibiotics for cellulitis of left leg. She presented to ED was febrile, had elevated WBC. She was given solumedrol initially and vancomycin +ceftriaxone and admitted for further evaluation. 1. Sepsis secondary to left lower extremity edema; fever; tachycardia; leukocytosis 2. Hx of TBI with cognitive impairment 3. Hx of Bipolar disorder 4. Hx of tremors details unknown 5. Hx of GERD 6. Mild hypernatremia 7. MARISOL; likely pre-renal 8. Generalized weakness Plan -admit to inpatient -obtain blood culture -continue vanco+ceftriaxone -continue PPI -pain control -PT/OT/SW consults -obtain hospital records -switch IVF to 1/2 NS Code-Full DVT-heparin subq Dispo-may need short term rehab; anticipated LOS 2-3 days 12/23/20 afebrile/vss p.e. lungs clear but decreased and equal. cor: rrr without m s3/s4 abd : benign neuro : forgetful but ao4 and good insight. moderate tremor notedboth hands and less in legs m.s: edema 2-3 plus to knees pulses palp 1 plus at knee and ankles and strong d.p. bilaterally . skin: brownish and slight clear discharge form medial shins. no tenderness and mild warmth . s.q changesa nd mild o.a changes . lab: blood c/s negative off antibiotics . lithium level 1.7 Hypernatremia: lytes good. other than na 152( worse) crf: creatinine 1.3 and appears fairly stable and urine output not good and does not take lasix sec to accidents and balance issues. she needs loop diuretic. possible this is mostly prerenal failure but bnp normal on admit and only hypoxia and macias worsened lately . ?sepsis: cbc coming down and will switch to oral antibiotics and cont to monitor. lithium toxicity: prob cause of hypernatremia. hold today and recheck in am . depakote given sec . to bipolar issues and behavior problems anticipated by sign . other. pain control much better but on multiple sedating meds including cyclobenz and opiods and she appears to be a possible maria fernanda concern but mild snorer by hx. bipolar disorder on topimax/lithium/lamictal / tci and discussed with sign. other being off lithium sec. to high levels and hypernatremia . trying to decrease polypharmacy cad event and p.e ruled out. plan convert to oral antibiotic augmentin. decrease i.v and allow free water intake. monitor na and i/os. reconsider lasix and dc amelioride sec to na and effacacy concerns. receck na in am off lithium x 24 hours. arrange for follow up with primary provider/psyche provider ,start depakote. boh
[2020-12-23] MEDS: Vancomycin 1.75 GM in Sodium Chloride 0.9% 500 ML IV SCH (17:22)
[2020-12-23] MEDS: cefTRIAXone 2 GM in Sodium Chloride 0.9% 100 ML IV SCH (20:14)
[2020-12-23] MEDS: Cyclobenzaprine 10 MG Tab PO SCH (20:16)
[2020-12-23] MEDS: Topiramate 100 MG Tab PO SCH (20:16)
[2020-12-23] MEDS: Doxepin 10 MG Cap PO SCH (20:17)
[2020-12-23] MEDS: Tiotropium BR/Olodaterol HCL 4 GM Inhalation Spray 2.5mcg/1 dose; 10 doses INH SCH (20:59)
[2020-12-23] MEDS ORDERED: Divalproex Sodium Delayed-Release 250 MG Tab.CR PO ONE (21:00)
[2020-12-24] MEDS: Heparin Sodium 5,000 Units/ML Vial SUBCUT SCH ×3 (01:09→16:22)
[2020-12-24] MEDS: Divalproex Sodium Delayed-Release 250 MG Tab.CR PO SCH ×2 (06:12→16:22)
[2020-12-24] MEDS: Cyanocobalamin (Vitamin B12) 1,000 MCG Tab PO SCH (08:13)
[2020-12-24] MEDS: lamoTRIgine 100 MG Tab PO SCH ×2 (08:13→20:23)
[2020-12-24] MEDS: Aspirin 81 MG Tab.EC PO SCH (08:13)
[2020-12-24] MEDS: Pantoprazole 40 MG Tab.CR PO SCH (08:13)
[2020-12-24] MEDS: Amoxicillin/Clavulanate K 875-125 MG Tab PO SCH ×2 (08:13→20:22)
[2020-12-24] MEDS: Cholecalciferol (Vitamin D3) 25 MCG Tab PO SCH (08:13)
[2020-12-24] MEDS: aMILoride 5 MG Tab PO SCH ×2 (09:13→20:24)
[2020-12-24] MEDS: Tiotropium BR/Olodaterol HCL 4 GM Inhalation Spray 2.5mcg/1 dose; 10 doses INH SCH (09:29)
[2020-12-24] MEDS: HYDROmorphone 0.5 MG/0.5 ML Syringe IVPUSH PRN ×2 (10:25→22:29)
[2020-12-24] MEDS: oxyCODONE 5 MG Tab PO PRN (20:21)
[2020-12-24] MEDS: Cyclobenzaprine 10 MG Tab PO SCH (20:22)
[2020-12-24] MEDS: Topiramate 100 MG Tab PO SCH (20:24)
[2020-12-24] MEDS: Doxepin 10 MG Cap PO SCH (20:24)
[2020-12-25] MEDS: Heparin Sodium 5,000 Units/ML Vial SUBCUT SCH ×2 (00:39→09:11)
[2020-12-25] MEDS: oxyCODONE 5 MG Tab PO PRN (00:53)
[2020-12-25] MEDS: Divalproex Sodium Delayed-Release 250 MG Tab.CR PO SCH (06:31)
[2020-12-25] MEDS: Tiotropium BR/Olodaterol HCL 4 GM Inhalation Spray 2.5mcg/1 dose; 10 doses INH SCH (08:32)
[2020-12-25] MEDS: Amoxicillin/Clavulanate K 875-125 MG Tab PO SCH (09:11)
[2020-12-25] MEDS: Cholecalciferol (Vitamin D3) 25 MCG Tab PO SCH (09:12)
[2020-12-25] MEDS: Pantoprazole 40 MG Tab.CR PO SCH (09:12)
[2020-12-25] MEDS: Aspirin 81 MG Tab.EC PO SCH (09:12)
[2020-12-25] MEDS: Cyanocobalamin (Vitamin B12) 1,000 MCG Tab PO SCH (09:12)
[2020-12-25] MEDS: lamoTRIgine 100 MG Tab PO SCH (09:12)
[2020-12-25] MEDS: aMILoride 5 MG Tab PO SCH (09:18)
--- NOTE | 2020-12-25 09:37 | PCM.DCSUM1 ---
Discharge Summary - Hospital Course Free Text/Narrative:: Admission Diagnosis/Problem Sepsis 12/22/2020: This is a 70F with PMhx of TBI, Bipolar disorder, GERD, undifferentiated tremors, suspected cognitive impairment presenting for worsening lower extremity edema of left leg. Hx limited by patient memory/cognitive issues. She lives in [facility] but over the last month has been taking cross country ride via recreational RV with chair lift. She and her friend made it to [place] but then the patient was hospitalized for about a week. Details of hospitalization unclear, there was concern for possible bacteremia; and it sounds like the charles ent was discharged with antibiotics for cellulitis of left leg. She presented to ED was febrile, had elevated WBC. She was given solumedrol initially and vancomycin +ceftriaxone and admitted for further evaluation. She currently denies headache, chest pain, sob , nausea, vomiting, diarrhea, abdominal pain. Physical Exam Comments: Gen: elderly female in no distress HEENT: NCAT EOMI MMM Neck: Supple CV RRR normal s1 s2] Lungs; CTAB Abd: soft, nt, nd Neuro: Alert to place but not time; baseline cognitive impairment from hx of TBI, moving extremities; appears at baseline state MSK: Age appropriate muscle mass Skin: erythema, edema of left lower extremity to mid shrestha Psych: appropriate affect. Assessment: 1. Sepsis secondary to left lower extremity edema; fever; tachycardia; leukocytosis 2. Hx of TBI with cognitive impairment 3. Hx of Bipolar disorder 4. Hx of tremors details unknown 5. Hx of GERD 6. Mild hypernatremia 7. MARISOL; likely pre-renal 8. Generalized weakness Plan: -admit to inpatient -obtain blood culture -continue vanco+ceftriaxone -continue PPI -pain control -PT/OT/SW consults -obtain hospital records -switch IVF to 06/22 NS Code-Full DVT-heparin subq Dispo-may need short term rehab; anticipated LOS 2-3 days 12/23/2020: afebrile/vss p.e. lungs clear but decreased and equal. cor: rrr without m s3/s4 abd: benign neuro: forgetful but ao4 and good insight. moderate tremor noted both hands and less in legs m.s: edema 2-3 plus to knees pulses palp 1 plus at knee and ankles and strong d.p. bilaterally skin: brownish and slight clear discharge form medial shins with no tenderness and mild warmth s.q changes and mild osteoarthritic changes lab: blood c/s negative off antibiotics lithium level 1.7 Hypernatremia: electrolytes good other than Na 152 (worse) crf: creatinine 1.3 and appears fairly stable and urine output not good and does not take Lasix secondary to accidents and balance issues she needs loop diuretic possible this is mostly prerenal failure but BNP normal on admission and only hypoxia and DON worsened lately ?sepsis: CBC coming down and will switch to oral antibiotics and continue to monitor lithium toxicity: probable cause of hypernatremia and will hold today and recheck in AM Depakote given secondary to bipolar issues and behavior problems anticipated by significant other pain control much better but on multiple sedating medications including Cyclobenzaprine and opioids and she appears to be a possible obstructed sleep apnea concern but mild snorer by history bipolar disorder on topiramate/lithium/Lamictal/tci and discussed with significant other being off lithium secondary to high levels and hypernatremia trying to decrease polypharmacy CAD event and PE ruled out plan: convert to oral antibiotic Augmentin decrease IV and allow free water intake monitor Na and i/os reconsider Lasix and DC amelioride secondary to Na and efficiency concerns recheck Na in AM off lithium x 24 hours. arrange for follow up with primary provider/psyche provider, and start Depakote. boh 12/24/2020: She is alert and orientated Her appetite has improved Her anxiety is better Her cellulitis has improved Her back pain has improved Her CHF has improved since starting Lasix and recommend continuing No cognitive impairment noted Calcium is elevated today at 10.3 Sodium has increased from 148 on 12/22/2020 to 155 as of today Hgb has increased from 9.9 on 12/22/2020 to 10.8 as of today WBC has decreased from 21.56 on 12/22/2020 to 11.73 as of today Creatinine has decreased from 1.5 on 12/22/2020 to 1.2 as of today Urine random sodium was 51 today Discussed discharging tomorrow and going back to [place] where she is recommended to follow up with her PCP - Plan Plan:: 12/24/2020: She is alert and orientated Her appetite has improved Her anxiety is better Her cellulitis has improved Her back pain has improved Her CHF has improved since starting Lasix and recommend continuing No cognitive impairment noted Calcium is elevated today at 10.3 Sodium has increased from 148 on 12/22/2020 to 155 as of today Hgb has increased from 9.9 on 12/22/2020 to 10.8 as of today WBC has decreased from 21.56 on 12/22/2020 to 11.73 as of today Creatinine has decreased from 1.5 on 12/22/2020 to 1.2 as of today Urine random sodium was 51 today Discussed discharging tomorrow and going back to [place] where she is recommended to follow up with her PCP HPI Initial Comments: This is a 70F with PMhx of TBI, Bipolar disorder, GERD, undifferentiated tremors, suspected cognitive impairment presenting for worsening lower extremity edema of left leg. Hx limited by patient memory/cognitive issues. She lives in [facility] but over the last month has been taking cross country ride via recreational RV with chair lift. She and her friend made it to [place] but then the patient was hospitalized for about a week. Details of hospitalization unclear, there was concern for possible bacteremia; and it sounds like the patient was discharged with antibiotics for cellulitis of left leg. She presented to ED was febrile, had elevated WBC. She was given solumedrol initially and vancomycin +ceftriaxone and admitted for further evaluation. She currently denies headache, chest pain, sob , nausea, vomiting, diarrhea, abdominal pain. - Related Data Allergies/Adverse Reactions: Allergies Allergy/AdvReac Type Severity Reaction Status Date / Time No Known Allergies Allergy Verified 12/21/20 17:47 Home Medications: Home Meds Aspirin [Aspirin EC] 81 mg PO DAILY 12/21/20 [History] Calcium Carbonate [Calcium] 500 mg PO QPM 12/21/20 [History] Cholecalciferol (Vitamin D3) [Vitamin D] 1,000 unit PO DAILY 12/21/20 [History] Cyanocobalamin (Vitamin B-12) [Vitamin B-12] 1,000 mcg PO DAILY 12/21/20 [History] Cyclobenzaprine [Flexeril] 10 mg PO BEDTIME 12/21/20 [History] Doxepin [SINEquan] 25 mg PO BEDTIME 12/21/20 [History] Levorphanol Tartrate 1 mg PO QPM 12/21/20 [History] [place] Carbonate 300 mg PO DAILY 12/21/20 [History] [place] Carbonate 600 mg PO QPM 12/21/20 [History] Magnesium 0 mg PO QPM 12/21/20 [History] Multivitamin 1 each PO DAILY 12/21/20 [History] Omeprazole Magnesium [Prilosec Otc] 80 mg PO DAILY 12/21/20 [History] Topiramate [Topamax] 200 mg PO QPM 12/21/20 [History] lamoTRIgine [LaMICtal] 150 mg PO BID 12/21/20 [History] oxyCODONE HCl [Oxycodone HCl] 15 mg PO TID PRN 12/21/20 [History] Past Medical History Respiratory History: Reports: COPD, SOB Gastrointestinal History: Reports: GERD 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 (See Below) Other OB/BYN History: hysterctomy Musculoskeletal History: Reports: Back Pain, Chronic Neurological History: Reports: Brain Injury Endocrine/Metabolic History: Reports: Obesity/BMI 30+ Oncologic (Cancer) History: Reports: Uterine - Past Surgical History Neurological Surgical History: Reports: Other (See Below) Other Neurological Surgeries/Procedures: brain surgury Social & Family History - Family History Family Medical History: No Pertinent Family History - Tobacco Use Tobacco Use Status *Q: Former Tobacco User Years of Tobacco use: 25 Used Tobacco, but Quit: Yes Month/Year Tobacco Last Used: 1994 - Caffeine Use Caffeine Use: Reports: Coffee Caffeine Use Comment: Unknown due to pt condition. - Recreational Drug Use Recreational Drug Use: No H&P Review of Systems - Review of Systems: Review Of Systems: Comprehensive ROS is negative, except as noted in HPI. Exam - Exam Exam: See Below - Vital Signs Vital Signs: Last Vital Signs Temp 97.5 F 12/22/20 06:39 Pulse 96 12/22/20 06:39 Resp 19 12/22/20 06:39 BP 118/77 12/22/20 06:39 Pulse Ox 99 12/22/20 06:39 Weight: 241 lb 11.2 oz - Exam Physical Exam Comments:: Gen: elderly female in no distress HEENT: NCAT EOMI MMM Neck: Supple CV RRR normal s1 s2] Lungs; CTAB Abd: soft, nt, nd Neuro: Alert to place but not time; baseline cognitive impairment from hx of TBI, moving extremities; appears at baseline state MSK: Age appropriate muscle mass Skin: erythema, edema of left lower extremity to mid shrestha - Discharge Data Discharge Date: 12/25/20 Discharge Disposition: Home, Self-Care 01 Condition: Good - Referral to Home Health Primary Care Physician: PCP Not In Area - Patient Summary/Data Consults: Consultations 12/23/20 09:45 Consult to Case Management/Cooperative Education Coordinator [CONS] Routine Consult to Drier Operator Head [CONS] Routine Consult to Occupational Therapy [OT Evaluation and Treatment] [CONS] Routine PT Evaluation and Treatment [CONS] Routine Hospital Course: A daily timeline prior to 12 25 has been outlined as above according to previous providers who were overseeing her care. On the day of her discharge 12/25/2020 I was a new provider taking over her care. Patient was seen and examined at bedside. Patient did not endorse any new history. She was feeling well and was hoping to go home. Patient's case was reviewed entirely personally with her as well as via the medical record and case management team. Patient was cleared for discharge medically. Augmentin was continued to complete a full course of 7 days. Prescription has been provided via printed prescription. [place] was decreased to 300 mg twice daily. She was formerly taking lithium 600 mg in the evening in addition to 300 earlier in the day. Acute kidney injury resolved. Still remains with mild leukocytosis which is an exquisite improvement. - Patient Instructions Driving: May Drive Today Showering/Bathing: May Shower Notify Provider of: Fever, Increased Pain, Swelling and Redness, Drainage Other/Special Instructions: Activity and diet are as tolerated. Continue taking medications as prescribed. Follow-up with primary care physician within 1 to 2 weeks. If you experience any signs or symptoms that warranted this admission please do not hesitate to call your primary care physician or present to an emergency department for an immediate evaluation. - Discharge Plan *PRESCRIPTION DRUG MONITORING PROGRAM REVIEWED*: Not Applicable *COPY OF PRESCRIPTION DRUG MONITORING REPORT IN PATIENT YRN: Not Applicable Prescriptions/Med Rec: Amoxicillin/Clavulanate K [Augmentin 875-125 MG] 1 tab PO Q12HR 3 Days #6 tablet [place] Carbonate 300 mg PO BEDTIME 30 Days #30 capsule Home Medications: Home Meds Aspirin [Aspirin EC] 81 mg PO DAILY 12/21/20 [History] Calcium Carbonate [Calcium] 500 mg PO QPM 12/21/20 [History] Cholecalciferol (Vitamin D3) [Vitamin D] 1,000 unit PO DAILY 12/21/20 [History] Cyanocobalamin (Vitamin B-12) [Vitamin B-12] 1,000 mcg PO DAILY 12/21/20 [History] Cyclobenzaprine [Flexeril] 10 mg PO BEDTIME 12/21/20 [History] Doxepin [SINEquan] 25 mg PO BEDTIME 12/21/20 [History] Levorphanol Tartrate 1 mg PO QPM 12/21/20 [History] [place] Carbonate 300 mg PO DAILY 12/21/20 [History] Magnesium 0 mg PO QPM 12/21/20 [History] Multivitamin 1 each PO DAILY 12/21/20 [History] Topiramate [Topamax] 200 mg PO QPM 12/21/20 [History] lamoTRIgine [LaMICtal] 150 mg PO BID 12/21/20 [History] oxyCODONE HCl [oxyCODONE] 15 mg PO TID PRN 12/21/20 [History] Amoxicillin/Clavulanate K [Augmentin 875-125 MG] 1 tab PO Q12HR 3 Days #6 tablet 12/25/20 [Rx] [place] Carbonate 300 mg PO BEDTIME 30 Days #30 capsule 12/25/20 [Rx] Oxygen Therapy Mode: Room Air Patient Handouts: Cellulitis, Adult, [id number], Low-Sodium Eating Plan, Sepsis, Self Care, Adult Forms: ED Department Discharge Referrals: PCP,Not In Area [Primary Care Provider] - (Follow up with Primary Doctor when you get home) - Discharge Summary/Plan Comment DC Time >30 min.: Yes - General Info Date of Service: 12/25/20 Subjective Update: Patient seen and examined at bedside. Patient does not endorse any new complaints. She is feeling well and wishes to go home. No new nursing concerns or concerns from case management. Lower extremities are without calor, wound, erythema, induration or pain. - Patient Data Vitals - Most Recent: Last Vital Signs Temp 97.5 F 12/25/20 07:14 Pulse 81 12/25/20 07:14 Resp 20 12/25/20 07:14 BP 131/88 12/25/20 07:14 Pulse Ox 96 12/25/20 08:32 Weight - Most Recent: 236 lb 3.2 oz I&O - Last 24 hours: Intake & Output 12/24/20 12/25/20 12/25/20 22:59 06:59 14:59 Intake Total 2530 0 Output Total 2850 2500 Balance -320 -450 Lab Results - Last 24 hrs: Laboratory Results - last 24 hr 12/23/20 12/24/20 12/24/20 Range/Units 06:27 09:50 10:26 WBC (3.98-10.04) K/mm3 RBC (3.98-5.22) M/mm3 Hgb (11.2-15.7) gm/dl Hct (34.1-44.9) % MCV (79.4-94.8) fl MCH (25.6-32.2) pg MCHC (32.2-35.5) g/dl RDW Std Deviation (36.4-46.3) fL Plt Count (182-369) K/mm3 MPV (9.4-12.3) fl Neut % (Auto) (34.0-71.1) % Lymph % (Auto) (19.3-51.7) % [place] % (Auto) (4.7-12.5) % Eos % (Auto) (0.7-5.8) Baso % (Auto) (0.1-1.2) % Neut # (Auto) (1.56-6.13) K/mm3 Lymph # (Auto) (1.18-3.74) K/mm3 [place] # (Auto) (0.24-0.36) K/mm3 Eos # (Auto) (0.04-0.36) K/mm3 Baso # (Auto) (0.01-0.08) K/mm3 Manual Slide Review Sodium (136-145) mEq/L Potassium (3.5-5.1) mEq/L Chloride (98-107) mEq/L Carbon Dioxide (21-32) mEq/L Anion Gap (5-15) BUN (7-18) mg/dL Creatinine (0.55-1.02) mg/dL Est Cr Clr Drug Dosing mL/min Estimated GFR (MDRD) (>60) mL/min BUN/Creatinine Ratio (14-18) Glucose (70-99) mg/dL Serum Osmolality 320 H (280-300) mosm/kg Calcium (8.5-10.1) mg/dL Total Bilirubin (0.2-1.0) mg/dL AST (15-37) U/L ALT (14-59) U/L Alkaline Phosphatase (46-116) U/L C-Reactive Protein (<1.0) mg/dL Total Protein (6.4-8.2) g/dl Albumin (3.4-5.0) g/dl Globulin gm/dL Albumin/Globulin Ratio (1-2) Urine Osmolality 152 L (400-1100) mosm/kg Ur Random Creatinine < 13.0 L (30.0-125.0) mg/dL Ur Random Sodium 51 (40-220) mEq/L [place] 0.99 (0.60-1.20) mEq/L 12/25/20 12/25/20 Range/Units 06:15 06:15 WBC 11.12 H (3.98-10.04) K/mm3 RBC 3.85 L (3.98-5.22) M/mm3 Hgb 9.7 L (11.2-15.7) gm/dl Hct 34.6 (34.1-44.9) % MCV 89.9 (79.4-94.8) fl MCH 25.2 L (25.6-32.2) pg MCHC 28.0 L (32.2-35.5) g/dl RDW Std Deviation 73.9 H (36.4-46.3) fL Plt Count 381 H (182-369) K/mm3 MPV 11.2 (9.4-12.3) fl Neut % (Auto) 70.8 (34.0-71.1) % Lymph % (Auto) 14.5 L (19.3-51.7) % [place] % (Auto) 9.9 (4.7-12.5) % Eos % (Auto) 4.0 (0.7-5.8) Baso % (Auto) 0.3 (0.1-1.2) % Neut # (Auto) 7.87 H (1.56-6.13) K/mm3 Lymph # (Auto) 1.61 (1.18-3.74) K/mm3 [place] # (Auto) 1.10 H (0.24-0.36) K/mm3 Eos # (Auto) 0.45 H (0.04-0.36) K/mm3 Baso # (Auto) 0.03 (0.01-0.08) K/mm3 Manual Slide Review Abnormal smear Sodium 150 H (136-145) mEq/L Potassium 5.2 H (3.5-5.1) mEq/L Chloride 119 H (98-107) mEq/L Carbon Dioxide 23 (21-32) mEq/L Anion Gap 13.2 (5-15) BUN 12 (7-18) mg/dL Creatinine 1.2 H (0.55-1.02) mg/dL Est Cr Clr Drug Dosing 37.13 mL/min Estimated GFR (MDRD) 44 (>60) mL/min BUN/Creatinine Ratio 10.0 L (14-18) Glucose 79 (70-99) mg/dL Serum Osmolality (280-300) mosm/kg Calcium 9.5 (8.5-10.1) mg/dL Total Bilirubin 0.3 (0.2-1.0) mg/dL AST 17 (15-37) U/L ALT 32 (14-59) U/L Alkaline Phosphatase 116 (46-116) U/L C-Reactive Protein <0.2 (<1.0) mg/dL Total Protein 6.4 (6.4-8.2) g/dl Albumin 2.7 L (3.4-5.0) g/dl Globulin 3.7 gm/dL Albumin/Globulin Ratio 0.7 L (1-2) Urine Osmolality (400-1100) mosm/kg Ur Random Creatinine (30.0-125.0) mg/dL Ur Random Sodium (40-220) mEq/L [place] (0.60-1.20) mEq/L ANTHONY Results - Last 24 hrs: Microbiology 12/22/20 09:10 Aerobic Blood Culture - Preliminary Blood - Venous - Lab Draw NO GROWTH AFTER 3 DAYS Anaerobic Blood Culture - Preliminary NO GROWTH AFTER 3 DAYS 12/22/20 08:45 Aerobic Blood Culture - Preliminary Blood - Venous NO GROWTH AFTER 3 DAYS Anaerobic Blood Culture - Preliminary NO GROWTH AFTER 3 DAYS 12/21/20 18:03 Aerobic Blood Culture - Preliminary Blood - Venous NO GROWTH AFTER 3 DAYS Anaerobic Blood Culture - Final 12/21/20 18:13 Aerobic Blood Culture - Preliminary Blood - Venous - Lab Draw NO GROWTH AFTER 3 DAYS Anaerobic Blood Culture - Preliminary NO GROWTH AFTER 3 DAYS Med Orders - Current: Current Medications Acetaminophen (Acetaminophen 325 Mg Tab) 975 mg PO Q6H PRN PRN Reason: Pain/Fever Last Admin: 12/23/20 17:21 Dose: 975 mg Documented by: Albuterol/Ipratropium (Albuterol/Ipratropium 3.0-0.5 Mg/3 Ml Neb Soln) 3 ml NEB Q4H PRN PRN Reason: Shortness Of Breath/wheezing Amiloride HCl (Amiloride 5 Mg Tab) 5 mg PO BID [facility] Last Admin: 12/25/20 09:18 Dose: 5 mg Documented by: Amoxicillin/Clavulanate Potassium (Amoxicillin/Clavulanate K 875-125 Mg Tab) 1 tab PO Q12HR [facility] Last Admin: 12/25/20 09:11 Dose: 1 tab Documented by: Aspirin (Aspirin 81 Mg Tab.Ec) 81 mg PO DAILY [facility] Last Admin: 12/25/20 09:12 Dose: 81 mg Documented by: Cholecalciferol (Cholecalciferol (Vitamin D3) 25 Mcg Tab) 25 mcg PO DAILY [facility] Last Admin: 12/25/20 09:12 Dose: 25 mcg Documented by: Cyanocobalamin (Cyanocobalamin (Vitamin B12) 1,000 Mcg Tab) 1,000 mcg PO DAILY [facility] Last Admin: 12/25/20 09:12 Dose: 1,000 mcg Documented by: Cyclobenzaprine HCl (Cyclobenzaprine 10 Mg Tab) 10 mg PO BEDTIME [facility] Last Admin: 12/24/20 20:22 Dose: 10 mg Documented by: Divalproex Sodium (Divalproex Sodium Delayed-Release 250 Mg Tab.Cr) 250 mg PO BIDMEALS [facility] Last Admin: 12/25/20 06:31 Dose: 250 mg Documented by: Doxepin HCl (Doxepin 10 Mg Cap) 10 mg PO BEDTIME [facility] Last Admin: 12/24/20 20:24 Dose: 10 mg Documented by: Heparin Sodium (Porcine) (Heparin Sodium 5,000 Units/Ml Vial) 5,000 units SUBCUT Q8H [facility] Last Admin: 12/25/20 09:11 Dose: 5,000 units Documented by: Hydromorphone HCl (Hydromorphone 0.5 Mg/0.5 Ml Syringe) 0.5 mg IVPUSH Q2H PRN PRN Reason: Pain (severe 7-10) Last Admin: 12/24/20 22:29 Dose: 0.5 mg Documented by: Lamotrigine (Lamotrigine 100 Mg Tab) 150 mg PO BID [facility] Last Admin: 12/25/20 09:12 Dose: 150 mg Documented by: Ondansetron HCl (Ondansetron 4 Mg/2 Ml Sdv) 4 mg IVPUSH Q6H PRN PRN Reason: Nausea/Vomiting Oxycodone HCl (Oxycodone 5 Mg Tab) 5 mg PO Q4H PRN PRN Reason: Pain (moderate 4-6) Last Admin: 12/25/20 00:53 Dose: 5 mg Documented by: Pantoprazole Sodium (Pantoprazole 40 Mg Tab.Cr) 40 mg PO DAILY [facility] Last Admin: 12/25/20 09:12 Dose: 40 mg Documented by: Sodium Chloride (Sodium Chloride 0.9% 10 Ml Syringe) 10 ml FLUSH ASDIRECTED PRN PRN Reason: Keep Vein Open Last Admin: 12/21/20 18:05 Dose: 10 ml Documented by: Topiramate (Topiramate 100 Mg Tab) 100 mg PO BEDTIME [facility] Last Admin: 12/24/20 20:24 Dose: 100 mg Documented by: Discontinued Medications Ceftriaxone Sodium (Ceftriaxone 2 Gm Advvial) Confirm Administered Dose 2 gm IV .STK-MED ONE Stop: 12/21/20 18:22 Last Admin: 12/21/20 18:32 Dose: Not Given Documented by: Divalproex Sodium (Divalproex Sodium Delayed-Release 250 Mg Tab.Cr) 250 mg PO BIDMEALS [facility] Last Admin: 12/23/20 12:44 Dose: 250 mg Documented by: Divalproex Sodium (Divalproex Sodium Delayed-Release 250 Mg Tab.Cr) 250 mg PO ONETIME ONE Stop: 12/23/20 21:01 Last Admin: 12/23/20 20:17 Dose: 250 mg Documented by: Doxepin HCl (Doxepin 25 Mg Cap) 25 mg PO BEDTIME [facility] Sodium Chloride (Normal Saline) 1,000 mls @ 1,000 mls/hr IV .BOLUS [facility] Last Admin: 12/21/20 18:05 Dose: 1,000 mls/hr Documented by: Ceftriaxone Sodium 2 gm/ (Sodium Chloride) 100 mls @ 200 mls/hr IV ONETIME ONE Stop: 12/21/20 18:46 Last Admin: 12/21/20 18:29 Dose: 200 mls/hr Documented by: Vancomycin HCl 2 gm/ Sodium (Chloride) 500 mls @ 250 mls/hr IV ONETIME ONE Stop: 12/21/20 19:40 Last Admin: 12/21/20 20:06 Dose: 250 mls/hr Documented by: Sodium Chloride (Normal Saline) 1,000 mls @ 125 mls/hr IV ASDIRECTED [facility] Last Admin: 12/22/20 08:49 Dose: 125 mls/hr Documented by: Ceftriaxone Sodium 2 gm/ (Sodium Chloride) 100 mls @ 200 mls/hr IV Q24H [facility] Stop: 12/23/20 23:59 Last Admin: 12/23/20 20:14 Dose: 200 mls/hr Documented by: Vancomycin HCl 1.75 gm/ Sodium (Chloride) 500 mls @ 250 mls/hr IV Q24H [facility] Stop: 12/23/20 23:59 Last Admin: 12/23/20 17:22 Dose: 250 mls/hr Documented by: Sodium Chloride (Sodium Chloride 0.45%) 1,000 mls @ 75 mls/hr IV ASDIRECTED [facility] Last Admin: 12/23/20 07:23 Dose: 75 mls/hr Documented by: Sodium Chloride (Sodium Chloride 0.45%) 1,000 mls @ 20 mls/hr IV ASDIRECTED [facility] Ketorolac Tromethamine (Ketorolac 15 Mg/Ml Sdv) 15 mg IVPUSH ONETIME ONE Stop: 12/21/20 17:50 Last Admin: 12/21/20 18:04 Dose: 15 mg Documented by: [place] Carbonate ([place] Carbonate 300 Mg Cap) 300 mg PO DAILY [facility] Last Admin: 12/22/20 09:35 Dose: Not Given Documented by: [place] Carbonate ([place] Carbonate 300 Mg Cap) 600 mg PO QPM [facility] [place] Carbonate ([place] Carbonate 300 Mg Cap) 600 mg PO QPM [facility] Last Admin: 12/23/20 10:25 Dose: Not Given Documented by: [place] Carbonate ([place] Carbonate 300 Mg Cap) 300 mg PO DAILY [facility] Methylprednisolone Sodium Succinate (Methylprednisolone Sodium Succinate 125 Mg/2 Ml Sdv) 125 mg IVPUSH ONETIME ONE Stop: 12/21/20 17:50 Last Admin: 12/21/20 18:04 Dose: 125 mg Documented by: Topiramate (Topiramate 100 Mg Tab) 200 mg PO QPM [facility] Vancomycin HCl (Pharmacy To Dose - Vancomycin) 1 dose .XX ASDIRECTED PRN PRN Reason: RX TO DOSE VANCO Vancomycin HCl (Vancomycin 1 Gm Sdv) Confirm Administered Dose 2 gm .ROUTE .STK- MED ONE Stop: 12/22/20 17:43 Last Admin: 12/22/20 18:16 Dose: Not Given Documented by: - Exam General: Reports: Alert, Oriented, Cooperative, No Acute Distress Neck: Reports: Supple Lungs: Reports: Clear to Auscultation, Normal Respiratory Effort Cardiovascular: Reports: Regular Rate, Regular Rhythm GI/Abdominal Exam: Normal Bowel Sounds, Soft, Non-Tender Extremities: Normal Range of Motion, Pedal Edema (Nonpitting edema bilaterally with venous stasis changes.) Skin: Reports: Warm, Dry, Intact, Ecchymosis (On upper extremities) Neurological: Reports: No New Focal Deficit Psy/Mental Status: Reports: Alert, Normal Affect
--- NOTE | 2020-12-27 07:30 | PCM.SN.2 ---
#1 Interpretation EKG Date: 12/27/20 Time: 17:47 Rhythm: Other (sinus arrhythmia) Rate (Beats/Min): 88 [place]: Normal P-Wave: Present QRS: Normal ST-T: Normal QT: Normal PA/PQ Interval: 1st degree HB
== END 2020-12-25 12:35 | disposition home or self-care (01) | DRG 872 ==
LOC: JD.ED 17:40 → JD.MS 20:34 → JD.ICU 20:54 → JD.MS 12-22 23:40
PROVIDERS: ADMIT Hospitalist; ATTEND Hospitalist
DX: A41.9 Sepsis, unspecified organism (principal); E87.0 Hyperosmolality and hypernatremia; N17.9 Acute kidney failure, unspecified; L03.116 Cellulitis of left lower limb; Z68.41 Body mass index [BMI] 40.0-44.9, adult; F31.9 Bipolar disorder, unspecified; K21.9 Gastro-esophageal reflux disease without esophagitis; R25.1 Tremor, unspecified; N18.9 Chronic kidney disease, unspecified; I25.10 Atherosclerotic heart disease of native coronary artery without angina pectoris; F41.9 Anxiety disorder, unspecified; I50.9 Heart failure, unspecified; J44.9 Chronic obstructive pulmonary disease, unspecified; G89.29 Other chronic pain; M54.9 Dorsalgia, unspecified; E66.9 Obesity, unspecified; Z20.822 Contact with and (suspected) exposure to COVID-19; Z87.820 Personal history of traumatic brain injury; Z79.82 Long term (current) use of aspirin; Z79.899 Other long term (current) drug therapy; Z90.710 Acquired absence of both cervix and uterus; Z98.890 Other specified postprocedural states; Z87.891 Personal history of nicotine dependence
CPT/HCPCS: 36415; 36600; 71045; 80053; 80178; 81001; 82140; 82803; 82947; 83605; 83735; 83880; 84484; 85025; 85610; 85730; 86140; 87040 ×2; 93005; 96365; 96367; 96375; 99285; J0696; J1885; J2930; J3370; J7030; J7040; U0002; 70450; 70450-26; 80048; 80175; 82570; 83036; 83930; 83935; 84300; 84443; 94640; 94760; 94761; 97162-GP; A9270-GY; J1170; J1644